=== PATIENT | male | born 1930 | race Caucasian/White ===

== ENCOUNTER → 2016-04-07 | Outpatient (CLI) | payer OTHER ==
[~2016-04-07] MED LIST: ASPECUNK PO; ATROPINE PO; CHOL100010 PO; FINA5TAB PO; FLM4 PO; FRRS300 PO; MRPSRUNK PO; MULT-506 PO; OXYC-57 PO; potassium PO
[2016-04-07 12:19] LABS: BASO % 0.6 %; BASO ABS # 0.03 K/uL (0-0.2); COMPLETE YES; EOS % 6.2 %; HEMATOCRIT 41.6 % (42-52); IG% 0.4 %; LYMPH % 36.4 %; LYMPH ABS # 1.95 K/uL (1.2-3.4); MEAN CELL VOLUME 103.2 fL (80-100); MEAN CORPUSCULAR HEMOGLOBIN 34.5 pg (25-34); MEAN CORPUSCULAR HGB CONC 33.4 g/dl (32-36); MEAN PLATELET VOLUME 10.4 fL (7.4-10.4); MONO % 10.6 %; NEUT % 45.8 %; PLATELET COUNT 237 K/uL (130-400); RED BLOOD COUNT 4.03 M/uL (4.7-6.1); WHITE BLOOD COUNT 5.36 K/uL (4.8-10.8)
== END | disposition home or self-care (01) ==
LOC: C.LABPVFM 08:07
PROVIDERS: ATTEND Family Medicine
DX: D53.9 Nutritional anemia, unspecified (principal); E53.8 Deficiency of other specified B group vitamins; E55.9 Vitamin D deficiency, unspecified

== ENCOUNTER 2018-08-28 12:38 | Inpatient (IN) ==
--- OUTSIDE RECORDS SUMMARY | 2018-08-28 12:41 | External Medical Summary | Continuity of Care Document ---
:1930 Author Name Pop Jacobson, Provider Address Unavailable Unavailable , Care Team Providers Name Role Phone Morteza Jacobson, Marce Unavailable [email or web address] MORTEZA Jacobson, MARCE Unavailable Unavailable Unavailable Unavailable Unavailable Assessments Assessed Problems:Vitamin B12 deficiency Problems Ileostomy present (V44.2) (Z93.2) Low back pain (724.2) (M54.5) Contusion of thigh, right (924.00) (S70.11XA) Contusion of groin, right (922.2) (S30.1XXA) Pubic ramus fracture (808.2) (S32.599A) Benign prostatic hyperplasia with elevat ed prostate specific antigen (PSA) (600.00) (N40.0) Hyperlipidemia (272.4) (E78.5) Ulcerative pancolitis (556.6) (K51.00) Hypertension (401.9) (I10) Elevated serum creatinine (790.99) (R79.89) Abnormal immunological finding in serum (790.99) (R76.9) Need for pneumococcal vaccination (V03.82) (Z23) Actinic keratosis (702.0) (L57.0) Vitamin B12 deficiency (266.2) (E53.8) Elevated prostate specific antigen (PSA) (790.93) (R97.20) Vitamin D deficiency (268.9) (E55.9) Macrocytic anemia (281.9) (D53.9) Enlarged prostate with lower urinary tract symptoms (LUTS) ( 600.01) (N40.1) History of basal cell carcinoma (V10.83) (Z85.828) Status: Resolved Hyponatremia (276.1) (E87.1) Allergies and Adverse Reactions Morphine Derivatives (Allergy) Reaction: Nausea Medications Tamsulosin HCl - 0.4 MG Oral Capsule; TAKE 1 CAPSULE Daily Quantity: 30 Refills: 0 Finasteride 5 MG Oral Tablet; TAKE 1 TABLET DAILY. Start: 04-Apr-2012 Quantity: 90 Refills: 1 Cyanocobalamin 1000 MCG/ML Injection Yana ution; INJECT 1 ML INTRAMUSCULARLY ONCE A MONTH Kavon Pro Start: 27-Aug-2018 Quantity: 0 Status: Admin Reques champ Refills: 0 Diphenatol 2.5-0.025 MG TABS; TAKE 1 TABLET 3 times daily Start: 04-Apr-2012 Refills: 0 Multi-Vitamin TABS Refills: 0 Potassium 99 MG Oral Tablet Refills: 0 Vitamin D3 2000 UNIT Oral Capsule; Take one capsule da jenn. Kavon Pro Start: 02-Oct-2014 Quantity: 30 Refills: 3 Procedures History of Total Proctocolectomy With Continent Ileostomy Status: Completed History of Total Knee Arthroplasty Statu s: Completed Immunizations DT On: 05-Dec-1997 Influenza On: 30-Dec-2009 Influenza On: 03-Jan-2013 9:18 Lot #: [id number], [employer] Fluzone High-Dose Intramuscular Suspension On: 02-Jan-2014 9 :44 Lot #: [id number], [employer] Prevnar 13 Intramuscular Suspension On: 02-Oct-2014 9:57 Lot #: [id number], [employer] Fluzone High-Dose Intramuscular Suspension On: 01-Jan-2015 9 :25 Lot #: [id number], [employer] Tdap (Boostrix) On: 04-Jun-2015 9:23 Lot #: [id number], GLAXO RUBI CASTANEDA Fluzone High-Dose Intramuscular Suspension On: 17-Dec-2015 8 :56 Lot #: [id number], [employer] Pneumococcal polysaccharide vaccine, 23 valent On: 30-Oct-19 17 13:17 Lot #: [id number], [employer] Fluzone High-Dose Intramuscular Suspension On: 17-Dec-2016 1 1:48 Lot #: [id number], [employer] Fluzone High-Dose Intramuscular Suspension On: 04-Jan-2018 1 0:21 Lot #: [id number], [employer] Family History Unknown Family Member Family history of Hypertension (V17.49) Status: Active Comments: Family History Sister Family history of diabetes mellitus (V18.0) (Z83.3) Status: Active Family history of hypercholesterolemia (V18.19) (Z83.42) Sta tus: Active Brother Family history of diabetes mellitus (V18.0) (Z83.3) Status: Active Family history of hypercholesterolemia (V18.19) (Z83.42) Sta tus: Active Social History - Smoking Status Never smoker Interventions Medications/Immunizations AdministeredCyanocobalamin 1000 MCG/ML Injection Solution Plan of Treatment Planned Medications Cyanocobalamin 1000 MCG/ML Ordered: 02-Aug-2018 Request Injection Solution Comments: To be Done : Recurring Schedule: 09/02/2018, 10/02/2018 ... Cyanocobalamin 1000 MCG/ML Ordered: 02-Sep-2018 Request Injection Solution Planned Observations Planned Goals not documented Results No Known Results Results not documented Encounters Appointment; [facility] Nurse 05-Jul-2018 8:30 Encounter Diagnosis: Problem not documented Appointment; [facility] Nurse 31-May-2018 8:30 Encounter Diagnosis: Problem not documented Appointment; [facility] Nurse 05-May-2018 8:30 Encounter Diagnosis: Problem not documented Appointment; [facility] Nurse 06-Apr-2018 8:30 Encounter Diagnosis: Problem not documented Appointment; Marce Pro M.D. 03-Mar-2018 11:30 Encounter Diagnosis: Problem not documented Appointment; [facility] Nurse 01-Mar-2018 8:30 Encounter Diagnosis: Problem not documented Appointment; [facility] Nurse 02-Feb-2018 8:30 Encounter Diagnosis: Problem not documented Appointment; [facility] Nurse 04-Jan-2018 9:15 Encounter Diagnosis: Problem not documented Appointment; [facility] Nurse 02-Dec-2017 8:30 Encounter Diagnosis: Problem not documented Appointment; [facility] Nurse 02-Nov-2017 8:30 Encounter Diagnosis: Problem not documented Appointment; [facility] Nurse 05-Oct-2017 8:30 Encounter Diagnosis: Problem not documented Appointment; [facility] Nurse 31-Aug-2017 8:30 Encounter Diagnosis: Problem not documented Appointment; [facility] Nurse 04-Aug-2017 8:30 Encounter Diagnosis: Problem not documented Appointment; [facility] Nurse 06-Jul-2017 8:30 Encounter Diagnosis: Problem not documented Appointment; [facility] Nurse 08-Jun-2017 9:15 Encounter Diagnosis: Problem not documented Appointment; [facility] Nurse 11-May-2017 8:30 Encounter Diagnosis: Problem not documented Appointment; Marce Pro M.D. 27-Apr-2017 9:00 Encounter Diagnosis: Problem not documented Appointment; [facility] Nurse 13-Apr-2017 8:30 Encounter Diagnosis: Problem not documented Appointment; [facility] Nurse 09-Mar-2017 8:30 Encounter Diagnosis: Problem not documented Appointment; [facility] Nurse 09-Feb-2017 8:30 Encounter Diagnosis: Problem not documented Appointment; [facility] Nurse 12-Jan-2017 9:00 Encounter Diagnosis: Problem not documented Appointment; [facility] Nurse 17-Dec-2016 10:45 Encounter Diagnosis: Problem not documented Appointment; [facility] Nurse 08-Dec-2016 8:30 Encounter Diagnosis: Problem not documented Appointment; [facility] Nurse 12-Nov-2016 8:30 Encounter Diagnosis: Problem not documented Appointment; Marce Pro M.D. 29-Oct-2016 10:30 Encounter Diagnosis: Problem not documented Appointment; [facility] Nurse 06-Oct-2016 8:30 Encounter Diagnosis: Problem not documented Appointment; [facility] Nurse 08-Sep-2016 8:30 Encounter Diagnosis: Problem not documented Appointment; [facility] Nurse 02-Aug-2018 8:30 Encounter Diagnosis: Problem not documented
[2018-08-28 13:22] LABS: Basophils # (auto) 0.01 K/uL (0-0.2); Basophils % (auto) 0.1 %; Eosinophils # (auto) 0.05 K/uL (0-0.5); Eosinophils % (auto) 0.7 %; Hematocrit (blood only) 39.4 % (42-52); Hemoglobin 13.4 g/dL (14.0-18.0); Immature Granulocytes # (auto) 0.01 K/uL (0.00-0.02); Immature Granulocytes % (auto) 0.1 %; Lymphocytes # (auto) 0.69 K/uL (1.2-3.4); Lymphocytes % (auto) 10.2 %; Mean Corpuscular Volume 100.8 fL (80-100); Mean Platelet Volume 9.4 fL (7.4-10.4); Monocytes # (auto) 0.52 K/uL (0.11-0.59); Monocytes % (auto) 7.7 %; Neutrophils # (auto) 5.48 K/uL (1.4-6.5); Neutrophils % (auto) 81.2 %; Platelet Count 216 K/uL (130-400); RDW Coefficient of Variation 12.9 % (11.5-14.5); RDW Standard Deviation 46.6 fL (36.4-46.3); Red Blood Count 3.91 M/uL (4.7-6.1); White Blood Count 6.76 K/uL (4.8-10.8)
[2018-08-28 13:30] LABS: Prothrombin Time 9.8 Seconds (9.0-12.0)
[2018-08-28 13:41] LABS: BUN Creatinine Ratio 31.1 (10-20); Calcium 9.2 mg/dl (8.5-10.1); Creatinine Clr Calc Pharmacy 28.8 ml/min; Est GFR (African American) 43.9; Est GFR (Non-African American) 37.9; Potassium 4.3 mmol/L (3.5-5.1)
--- NOTE | 2018-08-28 13:52 | XRay Report ---
XR chest 1V portable HISTORY: 88 years-old Male fall acute chest trauma status post fall COMPARISON: Chest radiograph 12/16/2009 TECHNIQUE: Portable AP view of the chest FINDINGS: Cardiomediastinal and hilar silhouettes are within normal limits. Calcification the thoracic aortic a rch. Lungs are hyperinflated with subsegmental bibasilar opacities suggestive of atelectasis/scarring . No pneumothorax, pleural effusion or overt pulmonary edema. The lungs are hyperinflated. Imaged and changes of the shoulders and spine. No acute displaced rib fracture identified. IMPRESSION: No acute process. The above report was generated using voice recognition software. It may contain grammatical, syntax o r spelling errors. Electronically signed by: Will Pagan M.D. 08/28/2018 1:51 PM
--- NOTE | 2018-08-28 14:05 | XRay Report ---
XR hip RT 2-3V w pelvis, XR femur RT 2V routine HISTORY: 88 years-old Male fall, pain, ?frx acute right hip and femur pain status post fall COMPARISON: Sacrum and coccyx radiographs 03/13/2018 TECHNIQUE: 3 views of the right hip and 2 views of the right femur FINDINGS: HIP: Chronic appearing healing fracture deformity of the right superior pubic ramus. 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 Degenerative changes of the SI joints, pubic symphy sis and lower lumbar spine. There is an acute slightly impacted fracture of the intertrochanteric rig ht femur. Additionally, there is a few degrees of apex superior lateral angulation. Moderate adjacent soft tissue swelling. Femoral head appears intact. No acute dislocation. Surgical clips project over the scrotum. Peripheral arterial calcifications noted. FEMUR: Acute intertrochanteric fracture of the right femur. Mid and distal femur appear intact. Right knee t otal joint arthroplasty without evidence of complication. No large joint effusion about the knee iden tified. Demineralized appearance of the bones. IMPRESSION: 1. Acute appearing mildly impacted and slightly angulated fracture of the intertrochanteric right fem ur. 2. Chronic-appearing fracture forming of the right superior pubic ramus. 3. Demineralized appearance of the bones. The above report was generated using voice recognition software. It may contain grammatical, syntax o r spelling errors. Electronically signed by: Will Pagan M.D. 08/28/2018 2:03 PM
[2018-08-28] MEDS ORDERED: ACETAMINOPHEN 1,000 MG/100 ML VIAL IV STA (14:16)
--- NOTE | 2018-08-28 15:38 | XRay Report ---
XR knee RT 3V HISTORY: 88 years-old Male fall acute right knee pain status post fall COMPARISON: Right hip and femur radiographs of same day TECHNIQUE: 3 views of the right knee FINDINGS: Demineralized appearance the bones. Right knee total joint arthroplasty and patella resurfacing is no champ without evidence of hardware fracture or loosening. No acute periprosthetic fracture identified. Mild soft tissue swelling about the knee with small joint effusion. Peripheral arterial calcification s are noted. IMPRESSION: 1. Mild soft tissue swelling and small joint effusion. 2. No acute fracture or dislocation. The above report was generated using voice recognition software. It may contain grammatical, syntax o r spelling errors. Electronically signed by: Will Pagan M.D. 08/28/2018 3:36 PM
--- NOTE | 2018-08-28 16:09 | History & Physical Report ---
Date of Service August 28, 2018 Assessment & Plan (1) Closed intertrochanteric fracture of right hip: - Acute mildly impacted and slightly angulated fracture of right intertrochanteric femur noted on XR following fall at home. - Hip protocol ordered. - Orthopedics consulted, recs pending. - Pain control with Tylenol and Oxycodone prn. - Holding DVT ppx for possible procedure on 08/29/18; NPO after midnight except meds. - Continue Vit D daily; Vit D level pending in the morning. He is able to easily walk up and down a flight of stairs, achieving 4 METS without any angina or dyspnea. He has no history at all of any cardiac disease. He is quite active. ECG without any evidence of acute ischemia. He is with mild acute kidney injury which will likely be resolved with IV fluids due to prerenal state. He is therefore at average risk to undergo this intermediate risk procedure and should proceed with surgery as planned. (2) Fall: - Likely mechanical fall -- no LOC, lightheadedness noted. - Will need PT/OT evaluation prior to discharge. (3) Acute renal failure: - Creatinine increased to 1.61 -- baseline creatinine was 0.96 per outpt labs in May 2018. - Likely pre-renal (BUN/Cr ratio of 31.1) in setting of dehydration. - Start NS at 100 cc/hr. - Monitor renal function daily. (4) Ulcerative colitis: - S/p total proctocolectomy with ileostomy in 2004; also had colectomy in 2002. - Follows with Dr. Lopez - has not had any further complications. - Monitor ileostomy output - holding scheduled softeners/laxatives as pt has chronic liquid output. -Continue Lomotil as needed for diarrhea (5) BPH (benign prostatic hyperplasia): - Continue home Flomax and Finasteride. -Place [place] catheter if cannot void while lying flat this evening-discussed with nursing (6) Fracture of superior pubic ramus: - Chronic, noted on femur XR. (7) Anemia: - Macrocytic anemia noted on lab work. - Receives monthly B12 injections; also on ferrous sulfate daily at home. - Will order B12 and Folate levels in the morning. (8) DVT prophylaxis: - SCDs; hold pharmacologic ppx for procedure. Dispo: Med/surg for orthopedics consult, repair of intertrochanteric fracture. History of Present Illness Chief Complaint: Fall Primary Care Provider: Paula Pro MD Mr. Gibson is an 88 year old male with past medical history of BPH, HLD, Venous insufficiency, Ulcerative colitis s/p total proctocolectomy with ileostomy who presented to the ER with right hip pain following a fall at home. Pt. states he was standing on a stool to reach the [employer] box outside. He was stepping down from step stool and fell to the ground after hitting the first step. He landed on his right side -- right elbow, hip and knee had direct contact with the ground. He denies LOC during fall, dizziness or vision changes prior to fall. Complains of pain with movement in right hip but denies pain at rest. Received Tylenol IV in the ER with improvement in pain. Denies chest pain, SOB, headache, LE edema, N/V, dysuria or retention. Has good output from ileostomy -- takes Lomotil three times daily at home to prevent liquid output. Femur XR in the ER showed acute impacted and slightly angulated fracture of the intertrochanteric right femur. Lab work showed an GEE -- likely pre-renal related to dehydration. BP was borderline low -- will require IV fluid hydration. He will be admitted to med/surg for treatment of a right intertrochanteric femur fracture. Allergies Allergy/AdvReac Type Severity Reaction Status Date / Time No Known Allergies Allergy Unknown Verified 01/15/05 21:07 morphine AdvReac Unknown GI Verified 08/28/18 13:05 INTOLERANCE TO MORPHINE Home Medications Home Medications Medication Instructions Recorded Confirmed Type cholecalciferol (vitamin D3) 2,000 unit PO QDL 08/28/18 08/28/18 History [Vitamin D3] cyanocobalamin (vitamin B-12) 0 mcg IM MONTHLY 08/28/18 08/28/18 History diphenoxylate-atropine 1 tab PO TID 08/28/18 08/28/18 History ferrous sulfate 325 mg PO QAM 08/28/18 08/28/18 History finasteride 5 mg PO HS 08/28/18 08/28/18 History multivitamin 1 tab PO QDL 08/28/18 08/28/18 History naproxen sodium [Aleve] 220 mg PO Q12H PRN 08/28/18 08/28/18 History potassium 99 mg PO BID 08/28/18 08/28/18 History tamsulosin 0.4 mg PO HS 08/28/18 08/28/18 History Past Med/Surg History Medical History Colostomy present (Chronic) Colitis (Chronic) BPH (benign prostatic hyperplasia) Degenerative disk disease HLD (hyperlipidemia) Surgical History History of partial surgical removal of colon History of bilateral knee replacement Family History Other Family history non-contributory Social History Preferred Language: Ivorian Communication Ability: Effective Physician Extender Required: No Beliefs That Will Affect Care: None marital status: Current Living Situation: Spouse current occupational status: retired Other Information That Helps Us Care for You: No Feels Safe at Home: Yes Safety Concerns: Feels Safe At This Time Smoking Status: Never smoker Do You Dip or Chew Tobacco: No Second Hand Exposure: No Tobacco Cessation Education Requested by Patient: No Hx Alcohol Use: Yes (Socially) Hx Substance Use: No Review of Systems Review of Systems: All systems reviewed & are unremarkable except as noted in HPI & below Constitutional: no fever, no chills, no fatigue, no weakness and no anorexia Ear, Nose, Mouth, Throat: no nasal congestion, no nasal discharge and no sore throat Respiratory: no cough, no dyspnea, no dyspnea on exertion and no wheezing Cardiovascular: no chest pain, no palpitations, no lightheadedness, no syncope and no edema Gastrointestinal: no abdominal pain, no nausea, no vomiting and no constipation Genitourinary: no dysuria, no difficulty urinating and no hematuria Musculoskeletal: + joint pain; no back pain Integumentary: no non-healing lesions Neurologic: no dizziness Allergy / Immunological: no rash Physical Exam Physical Exam: General: Resting comfortably in no apparent distress HEENT: NC/AT; PERRLA with EOMI; [place] conjunctiva, MMM. No erythema of posterior pharynx Neck: Supple and nontender Cardiac: RRR w/o murmurs, gallops or rubs Lungs: CTA bilaterally; No rhonchi, wheezing, or rales Abdomen: Bowel normoactive X 4; Nontender to palpation Rectal: Deferred : Deferred Back: NO spinous tenderness Extremities: Warm. No edema present. No tenderness to palpation noted over r ight femur. Neuro: No focal weakness Skin: No rash Results & Data Vital Signs (Past 12 Hours) Vital Signs Temp Pulse Pulse Resp BP BP Pulse Ox 08/28/18 15:02 50 L 20 124/62 08/28/18 14:14 58 L 20 101/57 L 98 08/28/18 12:50 36.6 C 68 20 117/76 99 Laboratory Results 08/28/18 08/28/18 08/28/18 Range/Units 13:08 13:08 13:08 WBC (4.8-10.8) K/uL RBC (4.7-6.1) M/uL Hgb (14.0-18.0) g/dL Hct (42-52) % MCV (80-100) fL MCH (25-34) pg MCHC (32-36) g/dL RDW Std Deviation (36.4-46.3) fL RDW Coeff of Toan (11.5-14.5) % Plt Count (130-400) K/uL MPV (7.4-10.4) fL Immature Gran % (Auto) % Neut % (Auto) % Lymph % (Auto) % [place] % (Auto) % Eos % (Auto) % Baso % (Auto) % Immature Gran # (Auto) (0.00-0.02) K/uL Neut # (Auto) (1.4-6.5) K/uL Lymph # (Auto) (1.2-3.4) K/uL [place] # (Auto) (0.11-0.59) K/uL Eos # (Auto) (0-0.5) K/uL Baso # (Auto) (0-0.2) K/uL PT 9.8 (9.0-12.0) Seconds INR 1.0 (0.9-1.1) Sodium 135 L (136-145) mmol/L Potassium 4.3 (3.5-5.1) mmol/L Chloride 103 (98-107) mmol/L Carbon Dioxide 24 (21-32) mmol/L Anion Gap 8.0 (3-11) BUN 50 H (7-18) mg/dl Creatinine 1.61 H (0.6-1.4) mg/dl Est Cr Clr Drug Dosing 28.8 ml/min Est GFR ( Amer) 43.9 Est GFR (Non-Af Amer) 37.9 BUN/Creatinine Ratio 31.1 H (10-20) Glucose 120 H (70-99) mg/dl Calcium 9.2 (8.5-10.1) mg/dl Blood Type A Positive Antibody Screen NEGATIVE 08/28/18 Range/Units 13:08 WBC 6.76 (4.8-10.8) K/uL RBC 3.91 L (4.7-6.1) M/uL Hgb 13.4 L (14.0-18.0) g/dL Hct 39.4 L (42-52) % MCV 100.8 H (80-100) fL MCH 34.3 H (25-34) pg MCHC 34.0 (32-36) g/dL RDW Std Deviation 46.6 H (36.4-46.3) fL RDW Coeff of Toan 12.9 (11.5-14.5) % Plt Count 216 (130-400) K/uL MPV 9.4 (7.4-10.4) fL Immature Gran % (Auto) 0.1 % Neut % (Auto) 81.2 % Lymph % (Auto) 10.2 % [place] % (Auto) 7.7 % Eos % (Auto) 0.7 % Baso % (Auto) 0.1 % Immature Gran # (Auto) 0.01 (0.00-0.02) K/uL Neut # (Auto) 5.48 (1.4-6.5) K/uL Lymph # (Auto) 0.69 L (1.2-3.4) K/uL [place] # (Auto) 0.52 (0.11-0.59) K/uL Eos # (Auto) 0.05 (0-0.5) K/uL Baso # (Auto) 0.01 (0-0.2) K/uL PT (9.0-12.0) Seconds INR (0.9-1.1) Sodium (136-145) mmol/L Potassium (3.5-5.1) mmol/L Chloride (98-107) mmol/L Carbon Dioxide (21-32) mmol/L Anion Gap (3-11) BUN (7-18) mg/dl Creatinine (0.6-1.4) mg/dl Est Cr Clr Drug Dosing ml/min Est GFR ( Amer) Est GFR (Non-Af Amer) BUN/Creatinine Ratio (10-20) Glucose (70-99) mg/dl Calcium (8.5-10.1) mg/dl Blood Type Antibody Screen ECG Additional Comments: ECG with normal sinus rhythm with PACs and PVCs, no acute i schemia Code Status & VTE Plan Code Status DNR/DNI VTE Prophylaxis Plan VTE Prophylaxis will be ordered: No Reason for no VTE drug order: Treatment not indicated Supervising Physician Co-Signing Physician Notes PA Supervision Note: I personally saw and examined the patient. I verified all philip points and agree with DONNA Shelton with the following exceptions and/or additions: Patient presents with mechanical fall onto the right side resulting in right sided hip fracture, also with right knee effusion in the setting of total knee arthroplasty. Denies chest pain with climbing a flight of stairs. No previous cardiac history or NH. He reports he is thirsty and has not drank anything for the last 6 to 7 hours since arrival in the ER. History reviewed ROS as above Vitals reviewed Gen: AAOx3, NAD HEENT: Anicteric sclerae, EOMI CV: RRR no mgr nl S1S2, no carotid bruits Pulm: CTAB no wcr Abd: +BS soft NT ND no masses or hernias Ext: No edema, 2+ DP pulses bilaterally, right leg with no tenderness to palpation over right lateral hip, not much pain with right lower extremity logroll Skin: No rashes, warm/dry 88-year-old male with history of UC status post total colectomy, BPH, macrocytic anemia, here with mechanical fall resulting in right hip fracture and right knee contusion with effusion. -Awaiting orthopedic consultation-most likely for surgical repair tomorrow -Agree with surgical perioperative risk as noted above -Pain control with IV acetaminophen while n.p.o., he is declining anything stronger at this time -For GEE, check renal function in the morning and hydrate with IV fluids
[2018-08-28] MEDS ORDERED: ONDANSETRON INJ 2 MG/ML 2 ML VIAL IV PRN (16:56)
[2018-08-28] MEDS ORDERED: DIPHENOXYLATE/ATROPINE 2.5/0.025MG TAB PO PRN (16:56)
[2018-08-28] MEDS ORDERED: ACETAMINOPHEN 325 MG TAB PO PRN (16:56)
[2018-08-28] MEDS ORDERED: MAGNESIUM HYDROXIDE SUSP 30 ML UDC PO PRN (16:56)
[2018-08-28] MEDS ORDERED: BISACODYL 10 MG SUPP PR PRN (16:56)
[2018-08-28] MEDS: SODIUM CHLORIDE 0.9% 1000ML 1,000 ML IV SCH (17:59)
--- NOTE | 2018-08-28 19:28 | Emergency Department Note ---
Entered by Yudith Stuart acting as a scribe for Lalo Chi M.D. History of Present Illness General Chief complaint: Fall Stated complaint: fall/ R hip pain Source: patient History of Present Illness Onset (ago): hour(s) 1 Location: head Pain Consistency: + other (episode) Quality: + other (fall) Relieved By: + rest; not by medication (Tylenol) Exacerbated By: + movement Associated symptoms: + denies other symptoms (head trauma, headache, or any other pain on his right side, numbness or tingling) and + other (inability to bear weight on right leg) The patient is a 88 year old male that is presenting to the Emergency Room with complaints of an episode of a fall that occurred 1 hour ago. The patient reports that he was on a stool and fell when he was turning around to step down. He states that he fell on his right side and notes that he is currently experiencing pain in his right hip. He notes that it does not hurt when he lies still but states that he is unable to bear weight on the leg. He denies any head trauma, headache, or any other pain on his right side. He denies any numbness or tingling. He notes that he took two Tylenol for the pain. He states that he has a history of colitis and had a ileostomy bag placed in 2002. He notes that he had 6 feet of his small intestine removed at a later date. He denies taking any blood thinners or aspirin. He denies any history of past hip surgeries. The patient reports that he had his right knee replaced in 2008 and his left knee replaced in 2009. He notes that he has had his tetanus booster within the past 10 years. Home Medications Home Medications Medication Instructions Recorded Confirmed Type cholecalciferol (vitamin D3) 2,000 unit PO QDL 08/28/18 08/28/18 History [Vitamin D3] cyanocobalamin (vitamin B-12) 0 mcg IM MONTHLY 08/28/18 08/28/18 History diphenoxylate-atropine 1 tab PO TID 08/28/18 08/28/18 History ferrous sulfate 325 mg PO QAM 08/28/18 08/28/18 History finasteride 5 mg PO HS 08/28/18 08/28/18 History multivitamin 1 tab PO QDL 08/28/18 08/28/18 History naproxen sodium [Aleve] 220 mg PO Q12H PRN 08/28/18 08/28/18 History potassium 99 mg PO BID 08/28/18 08/28/18 History tamsulosin 0.4 mg PO HS 08/28/18 08/28/18 History Allergies Allergy/AdvReac Type Severity Reaction Status Date / Time No Known Allergies Allergy Unknown Verified 01/15/05 21:07 morphine AdvReac Unknown GI Verified 08/28/18 13:05 INTOLERANCE TO MORPHINE Past Med/Surg History Medical History Colostomy present (Chronic) Colitis (Chronic) BPH (benign prostatic hyperplasia) Degenerative disk disease HLD (hyperlipidemia) Surgical History History of partial surgical removal of colon History of bilateral knee replacement Family History Other Family history non-contributory Social History Preferred Language: [place] Islander Communication Ability: Effective Pairer Inspector Required: No Beliefs That Will Affect Care: None marital status: Current Living Situation: Spouse current occupational status: retired Other Information That Helps Us Care for You: No Feels Safe at Home: Yes Safety Concerns: Feels Safe At This Time Smoking Status: Never smoker Do You Dip or Chew Tobacco: No Second Hand Exposure: No Tobacco Cessation Education Requested by Patient: No Hx Alcohol Use: Yes (Socially) Hx Substance Use: No Review of Systems See HPI for pertinent positives & negatives. and A total of 10 systems reviewed and were otherwise negative Physical Exam Vital Signs Vital Signs - 24 hr 08/28/18 12:50 08/28/18 14:14 08/28/18 15:02 Temperature 36.6 C Temperature Source Oral Sepsis Recent Fever Within 48 Hours No Sepsis New/Unexplained Change in Mental Status No Sepsis Action Taken by Nursing No Action Required Pulse Rate 68 Pulse Rate [Right Finger] 58 L 50 L Respiratory Rate 20 20 20 Blood Pressure 117/76 Blood Pressure [Left Arm] 101/57 L 124/62 Blood Pressure Mean 89 Blood Pressure Mean [Left Arm] 71 82 Pulse Oximetry 99 98 Oxygen Delivery Method Room Air Room Air GENERAL: Awake, alert, well-appearing, in no distress HENT: Normocephalic, atraumatic. Oropharynx unremarkable. EYES: Normal conjunctiva. Sclera non-icteric. NECK: Supple. No nuchal rigidity. RESPIRATORY: Clear to auscultation. No wheezes. Normal respiratory effort. CARDIAC: Normal rate. Normal rhythm. Extremities warm and well perfused. GI: Soft, non-distended. No tenderness to palpation. No rebound or guarding. Right sided ileostomy bag present. RECTAL: Deferred. MUSCULOSKELETAL: Chest examination reveals no tenderness. Tenderness and deformity of right hip. LOWER EXTREMITIES: Calves are equal size bilaterally and non-tender. No edema. 2+ DP pulse right lower extremity. NVI right lower extremity. NEURO: Normal sensorium. No sensory or motor deficits noted. No facial droop. SKIN: Warm and dry. No rash or jaundice noted. 3 cm right elbow skin tear. 1 cm right lateral knee skin tear. Course 1243:The patient was evaluated in room C02B. A complete history and physical examination was performed. 1410: I updated the patient on his current lab and imaging results. 1417: I discussed the patient's care with Dr. Cavazos, [facility], who will evaluate the patient further. 1437: I discussed the patient's case with RAE Deluca, who will evaluate the patient for further management and care with Dr. Calderon as the attending physician. 1440: Upon reevaluation, the patient is resting comfortably. I discussed laboratory and radiographic results with the patient. He verbalized agreement of the treatment plan. The patient will be evaluated for further management and care. Consultations Consultation #1: I discussed the patient's care with Dr. Cavazos, [facility], who will evaluate the patient further. Time: 14:17 Consultation #2: I discussed the patient's case with RAE Deluca, who will evaluate the patient for further management and care with Dr. Calderon as the attending physician. Time: 14:37 Administered Medications Sodium Chloride (Nss 1000ml) 1,000 mls @ 100 mls/hr IV .Q10H JAMAR Stop: 09/27/18 16:55 Last Admin: 08/28/18 17:59 Dose: 100 mls/hr Documented by: [id number] Discontinued Medications Acetaminophen (Ofirmev) 1,000 mg in 100 mls @ 400 mls/hr IV NOW STA Stop: 08/28/18 14:30 Last Infusion: 08/28/18 14:40 Dose: 0 mls/hr Documented by: [id number] Admin: 08/28/18 14:20 Dose: 400 mls/hr Documented by: [id number] Medical Decision Making Differential Diagnosis Differential diagnosis: Etiologies such as fracture, dislocation, neurovascular compromise, compartment syndrome, soft tissue injury, as well as others were entertained. Medical Records Attestation: I reviewed the patient's medical records. Home Medications Current Medication List: was personally reviewed by me Laboratory Data Attestation: I reviewed the patient's lab results. Result diagrams: 08/28/18 13:08 08/28/18 13:08 Lab Results 08/28/18 08/28/18 08/28/18 Range/Units 13:08 13:08 13:08 WBC 6.76 (4.8-10.8) K/uL RBC 3.91 L (4.7-6.1) M/uL Hgb 13.4 L (14.0-18.0) g/dL Hct 39.4 L (42-52) % MCV 100.8 H (80-100) fL MCH 34.3 H (25-34) pg MCHC 34.0 (32-36) g/dL RDW Std Deviation 46.6 H (36.4-46.3) fL RDW Coeff of Toan 12.9 (11.5-14.5) % Plt Count 216 (130-400) K/uL MPV 9.4 (7.4-10.4) fL Immature Gran % (Auto) 0.1 % Neut % (Auto) 81.2 % Lymph % (Auto) 10.2 % Gem % (Auto) 7.7 % Eos % (Auto) 0.7 % Baso % (Auto) 0.1 % Immature Gran # (Auto) 0.01 (0.00-0.02) K/uL Neut # (Auto) 5.48 (1.4-6.5) K/uL Lymph # (Auto) 0.69 L (1.2-3.4) K/uL Gem # (Auto) 0.52 (0.11-0.59) K/uL Eos # (Auto) 0.05 (0-0.5) K/uL Baso # (Auto) 0.01 (0-0.2) K/uL PT 9.8 (9.0-12.0) Seconds INR 1.0 (0.9-1.1) Sodium 135 L (136-145) mmol/L Potassium 4.3 (3.5-5.1) mmol/L Chloride 103 (98-107) mmol/L Carbon Dioxide 24 (21-32) mmol/L Anion Gap 8.0 (3-11) BUN 50 H (7-18) mg/dl Creatinine 1.61 H (0.6-1.4) mg/dl Est Cr Clr Drug Dosing 28.8 ml/min Est GFR ( Amer) 43.9 Est GFR (Non-Af Amer) 37.9 BUN/Creatinine Ratio 31.1 H (10-20) Glucose 120 H (70-99) mg/dl Calcium 9.2 (8.5-10.1) mg/dl Blood Type Antibody Screen 08/28/18 Range/Units 13:08 WBC (4.8-10.8) K/uL RBC (4.7-6.1) M/uL Hgb (14.0-18.0) g/dL Hct (42-52) % MCV (80-100) fL MCH (25-34) pg MCHC (32-36) g/dL RDW Std Deviation (36.4-46.3) fL RDW Coeff of Toan (11.5-14.5) % Plt Count (130-400) K/uL MPV (7.4-10.4) fL Immature Gran % (Auto) % Neut % (Auto) % Lymph % (Auto) % Gem % (Auto) % Eos % (Auto) % Baso % (Auto) % Immature Gran # (Auto) (0.00-0.02) K/uL Neut # (Auto) (1.4-6.5) K/uL Lymph # (Auto) (1.2-3.4) K/uL Gem # (Auto) (0.11-0.59) K/uL Eos # (Auto) (0-0.5) K/uL Baso # (Auto) (0-0.2) K/uL PT (9.0-12.0) Seconds INR (0.9-1.1) Sodium (136-145) mmol/L Potassium (3.5-5.1) mmol/L Chloride (98-107) mmol/L Carbon Dioxide (21-32) mmol/L Anion Gap (3-11) BUN (7-18) mg/dl Creatinine (0.6-1.4) mg/dl Est Cr Clr Drug Dosing ml/min Est GFR ( Amer) Est GFR (Non-Af Amer) BUN/Creatinine Ratio (10-20) Glucose (70-99) mg/dl Calcium (8.5-10.1) mg/dl Blood Type A Positive Antibody Screen NEGATIVE Imaging Data Radiologist's Impression: Radiology results as stated below per my review and the radiologist's interpretation: XR hip RT 2-3V w pelvis, XR femur RT 2V routine HISTORY: 88 years-old Male fall, pain, ?frx acute right hip and femur pain status post fall COMPARISON: Sacrum and coccyx radiographs 03/13/2018 TECHNIQUE: 3 views of the right hip and 2 views of the right femur FINDINGS: HIP: Chronic appearing healing fracture deformity of the right superior pubic ramus. 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 Degenerative changes of the SI joints, pubic symphysis and lower lumbar spine. There is an acute slightly impacted fracture of the intertrochanteric right femur. Additionally, there is a few degrees of apex superior lateral angulation. Moderate adjacent soft tissue swelling. Femoral head appears intact. No acute dislocation. Surgical clips project over the scrotum. Peripheral arterial calcifications noted. FEMUR: Acute intertrochanteric fracture of the right femur. Mid and distal femur appear intact. Right knee total joint arthroplasty without evidence of complication. No large joint effusion about the knee identified. Demineralized appearance of the bones. IMPRESSION: 1. Acute appearing mildly impacted and slightly angulated fracture of the intertrochanteric right femur. 2. Chronic-appearing fracture forming of the right superior pubic ramus. 3. Demineralized appearance of the bones. The above report was generated using voice recognition software. It may contain grammatical, syntax or spelling errors. Electronically signed by: Will Pagan M.D. 08/28/2018 2:03 PM XR chest 1V portable HISTORY: 88 years-old Male fall acute chest trauma status post fall COMPARISON: Chest radiograph 12/16/2009 TECHNIQUE: Portable AP view of the chest FINDINGS: Cardiomediastinal and hilar silhouettes are within normal limits. Calcification the thoracic aortic arch. Lungs are hyperinflated with subsegmental bibasilar opacities suggestive of atelectasis/scarring. No pneumothorax, pleural effusion or overt pulmonary edema. The lungs are hyperinflated. Imaged and changes of the shoulders and spine. No acute displaced rib fracture identified. IMPRESSION: No acute process. The above report was generated using voice recognition software. It may contain grammatical, syntax or spelling errors. Electronically signed by: Will Pagan M.D. 08/28/2018 1:51 PM XR knee RT 3V HISTORY: 88 years-old Male fall acute right knee pain status post fall COMPARISON: Right hip and femur radiographs of same day TECHNIQUE: 3 views of the right knee FINDINGS: Demineralized appearance the bones. Right knee total joint arthroplasty and patella resurfacing is noted without evidence of hardware fracture or loosening. No acute periprosthetic fracture identified. Mild soft tissue swelling about the knee with small joint effusion. Peripheral arterial calcifications are noted. IMPRESSION: 1. Mild soft tissue swelling and small joint effusion. 2. No acute fracture or dislocation. The above report was generated using voice recognition software. It may contain grammatical, syntax or spelling errors. Electronically signed by: Will Pagan M.D. 08/28/2018 3:36 PM ECG Data Attestation: I personally reviewed and interpreted this ECG as follows: Indication: weakness Rate (beats per minute): 81 Rhythm: sinus rhythm Findings: + other (normal intervals) and + PVC; no ST depression, no ST elevation and no acute ischemic change Blood Pressure Blood Pressure Findings: Normal blood pressure MDM Narrative Patient is an 88-year-old gentleman with a past medical history including ulcerative colitis requiring ileostomy, and prior knee replacements by Dr. Hamm, and hyperlipidemia presented after fall complaining of right hip pain. Fortunately has a recent history of right superior and inferior pubic rami fractures in February. Patient states she was getting off a stool and turned and fell onto his right stripe. Denies striking his head. Complains of a small skin tear on his right elbow and right knee. Bandaged and clean. States his tetanus is up-to-date last 10 years. Like a severe right hip pain unable to walk. Denies any chest pain or difficulty breathing. Neurovascular intact in right lower extremity. Concern for possible hip fracture. X-ray imaging was obtained. Basic labs and EKG as well as chest x-ray obtained as well. Chest x- ray without acute pathology. He denies any acute head or neck issues and will deferring imaging here at this time. X-ray unfortunately does show evidence of mildly impacted and angulated right intertrochanteric fracture. Chronic pelvic issues are noted again. Patient later little bit knee pain and x-rays obtained here without acute fracture or dislocation noted. Discussed with orthopedics and will admit to the medicine service given his medical comorbidities. Patient was updated. Hospitalist contacted. Impression & Plan Hip fracture, right Discharge Plan Visit Data *Final* Discharge Date/Time: 08/28/18 16:31 Chief Complaint: Fall Stated Complaint: fall/ R hip pain ED Provider: Lalo Chi Discharge Problem: Hip fracture, right Patient Disposition: Admitted As Inpatient Discharge Instructions Interventions: ED Discharge Assessment Last Done: 08/28/18 16:31 Discharge Problem: Hip fracture, right Qualifiers: Encounter type: initial encounter Fracture type: closed Qualified Code(s): S72. 001A - Fracture of unspecified part of neck of right femur, initial encounter for closed fracture The jose's documentation has been prepared under my direction and personally reviewed by me in its entirety. I confirm that the note above accurately reflects all work, treatment, procedures, and medical decision making performed by me.
[2018-08-28] MEDS: TAMSULOSIN HCL 0.4 MG CAP PO SCH (20:19)
[2018-08-28] MEDS: FINASTERIDE 5 MG TAB PO SCH (20:19)
[2018-08-29] MEDS ORDERED: ACETAMINOPHEN 1000 MG/100 ML IV IV PRN (00:15)
[2018-08-29] MEDS: SODIUM CHLORIDE 0.9% 1000ML 1,000 ML IV SCH ×3 (04:22→16:53)
[2018-08-29 07:00] LABS: Hematocrit (blood only) 30.9 % (42-52); Hemoglobin 10.6 g/dL (14.0-18.0); Mean Corpuscular Hgb Conc 34.3 g/dL (32-36); Mean Corpuscular Volume 99.7 fL (80-100); Mean Platelet Volume 9.4 fL (7.4-10.4); Platelet Count 169 K/uL (130-400); RDW Standard Deviation 47.3 fL (36.4-46.3); White Blood Count 7.54 K/uL (4.8-10.8)
[2018-08-29 07:36] LABS: BUN Creatinine Ratio 28.4 (10-20); Calcium 8.5 mg/dl (8.5-10.1); Creatinine Clr Calc Pharmacy 29.7 ml/min; Est GFR (African American) 45.6; Est GFR (Non-African American) 39.4; Magnesium 1.9 mg/dl (1.8-2.4); Potassium 4.8 mmol/L (3.5-5.1)
[2018-08-29] MEDS: FERROUS SULFATE 325 MG TAB PO SCH (07:48)
--- NOTE | 2018-08-29 08:25 | Anesthesiology Consultation ---
Date of Service August 29, 2018 Assessment & Plan Chart Review Chart Review: Acceptable Risk for Surgery and Patient NOT seen in Pre Admission Testing Consults Requested none Pt is currently being managed by the hospitalist team and is deemed optimized to proceed with surgery today. ASA ASA3 Proposed Anesthesia Anesthesia Type: MAC Spinal Risk / Benefits Reviewed With: PT / POA / Parent / Guardian, Accepts Plan and Informed Consent Obtained Additional Comments: R/b of GA vs SAB discussed with patient and family members. All questions and concerns were answered. Also discussed with patient that DNR/DNI order will be suspended while intraop. Pt understood, accepting risks and willing to proceed. Consent was signed and witnessed. History Surgery Operation Date: 08/29/18 07:00 Proposed Procedures p Right Trochanteric Nail Sanjay - Brandon Hamm MD Height/Weight Height: 1.75 m Weight: 63 kg Allergies Allergy/AdvReac Type Severity Reaction Status Date / Time No Known Allergies Allergy Unknown Verified 01/15/05 21:07 morphine AdvReac Unknown GI Verified 08/28/18 13:05 INTOLERANCE TO MORPHINE Medications Home Medications Medication Instructions Recorded Confirmed Last Taken cholecalciferol (vitamin D3) 2,000 unit PO QDL 08/28/18 08/28/18 08/27/18 [Vitamin D3] cyanocobalamin (vitamin B-12) 0 mcg IM MONTHLY 08/28/18 08/28/18 07/28/18 diphenoxylate-atropine 1 tab PO TID 08/28/18 08/28/18 08/28/18 ferrous sulfate 325 mg PO QAM 08/28/18 08/28/18 08/28/18 finasteride 5 mg PO HS 08/28/18 08/28/18 08/27/18 multivitamin 1 tab PO QDL 08/28/18 08/28/18 08/27/18 naproxen sodium [Aleve] 220 mg PO Q12H PRN 08/28/18 08/28/18 08/28/18 11:00 440mg potassium 99 mg PO BID 08/28/18 08/28/18 08/28/18 tamsulosin 0.4 mg PO HS 08/28/18 08/28/18 08/27/18 Active Medications Generic Name Dose Route Start Last Admin Trade Name Freq PRN Reason Stop Dose Admin Acetaminophen 650 mg 08/28/18 16:56 08/29/18 05:48 Tylenol PO 09/27/18 16:55 650 mg Q6H PRN Administration MILD Pain (Scale 1,2,3) Ferrous Sulfate 325 mg 08/29/18 09:00 08/29/18 07:48 Feosol PO 09/28/18 08:59 325 mg QAM JAMAR Administration Finasteride 5 mg 08/28/18 21:00 08/28/18 20:19 Proscar PO 09/27/18 20:59 5 mg HS JAMAR Administration Sodium Chloride 1,000 mls @ 100 mls/hr 08/28/18 16:56 08/29/18 12:54 Nss 1000ml IV 09/27/18 16:55 Not Given .Q10H JAMAR Multivitamins 1 tab 08/29/18 11:30 08/29/18 11:55 Multivitamin Tab PO 09/28/18 11:29 Not Given QDL JAMAR Tamsulosin HCl 0.4 mg 08/28/18 21:00 08/28/18 20:19 Flomax PO 09/27/18 20:59 0.4 mg HS JAMAR Administration Vitamin D 2,000 units 08/29/18 11:30 08/29/18 11:55 Vitamin D3 PO 09/28/18 11:29 Not Given QDL JAMAR NPO Date Last Intake of Fluids: 08/28/18 Time Last Intake of Fluids: 23:59 Date Last Intake of Solids: 08/28/18 Time Last Intake of Solids: 18:30 Past Medical History Medical History Colostomy present (Chronic) Colitis (Chronic) BPH (benign prostatic hyperplasia) Degenerative disk disease HLD (hyperlipidemia) Exercise / Class Metabolic Activity II 4-5 Yardwork/Stairs/Walk up hill Past Family History Family History Other Family history non-contributory Past Surgical History Surgical History History of partial surgical removal of colon History of bilateral knee replacement Past Anesthesia History No Hx of Anesthesia Complications and No Family Hx of Anesthesia Complications History of PONV No Hx of PONV and No Hx of Motion Sickness Social History Smoking Status: Never smoker Do You Dip or Chew Tobacco: No Hx Alcohol Use: Yes (Socially) Hx Substance Use: No substance use type: does not use Physical Exam Vital Signs Last Vital Signs Temp 37 C 08/29/18 11:40 Pulse 79 08/29/18 11:40 Resp 18 08/29/18 11:40 BP 124/72 08/29/18 11:40 Pulse Ox 96 08/29/18 11:40 ENMT Mouth: no TMJ abnormality and no TMJ clicking Thyromental Distance: > or= 3.5 Finger Breadths Mallampati Class: II Neck normal visual inspection; neck extension not limited Respiratory Auscultation: lungs clear to auscultation bilaterally Cardiovascular Rate/Rhythm: regular rate and regular rhythm Psychiatric Orientation: alert and oriented x 3 Testing Laboratory Results Laboratory Tests 08/28/18 08/29/18 08/29/18 13:08 06:36 06:36 WBC 7.54 Hgb 10.6 L Hct 30.9 L Plt Count 169 PT 9.8 INR 1.0 Sodium 135 L Potassium 4.8 Chloride 106 Carbon Dioxide 22 BUN 44 H Creatinine 1.56 H Glucose 95 Electrocardiogram Date: 08/28/18 Findings: + NSR @ (85 bpm with ocasional PVCs and PACs) Otherwise normal ECG When compared with ECG of 12/16/2009 PVCs are now present PACs are now present Chest X-Ray Date: 08/28/18 Findings: + NAD
--- NOTE | 2018-08-29 08:34 | Consultation Report ---
DATE OF CONSULTATION: 08/29/2018 ORTHOPEDIC CONSULT CHIEF COMPLAINT: Right hip pain. HISTORY OF PRESENT ILLNESS: This 88-year-old gentleman well known to me from previous bilateral knee replacements done one 9 years ago and one 10 years ago and then a treatment of a stable pelvis fracture about 6 months ago. He was outside doing some work while he was up on a stool yesterday when he lost his balance and fell. He landed on his right side. Acute onset of pain. He was brought to the Emergency Room. X-ray displaced intertrochanteric hip fracture. He was admitted by the hospitalist service and we were consulted. Denies any other injuries. He has some scabs of his right elbow and the right knee. Previous independent ambulator. No preexisting hip pain. PAST MEDICAL HISTORY: Significant for: 1. Chronic renal disease. 2. Ulcerative colitis. 3. BPH. 4. Chronic anemia. Remainder of the past medical history is as per the admission H and P. PHYSICAL EXAMINATION: VITAL SIGNS: Temperature 37.0 this morning. Vital signs are stable. MUSCULOSKELETAL: General musculoskeletal exam reveals full and painless range of motion of the cervical, thoracic and lumbar spine. There is no pain in his upper extremities or his left lower extremity. He has got some abrasions over his right elbow in the lateral aspect of his right knee. Examination of the right hip and leg reveals the leg to be shortened and significantly externally rotated. There is no significant swelling. He does have this abrasion over the lateral side of his knee, but no knee effusion. He can dorsiflex and plantarflex his foot appropriately. He is neurologically intact. X-RAYS: X-rays of the right hip were reviewed. It shows a right displaced intertrochanteric hip fracture. He has got diffuse osteopenia. He has got healed right-sided pelvis fracture from 6 months ago. ASSESSMENT: An 88-year-old gentleman independent ambulator with a right displaced intertrochanteric hip fracture from a mechanical fall. Medically, he looks stable. PLAN: The patient has been admitted and medically optimized by the hospitalist service. We will plan on taking him to the operating room and do an IM nail later this afternoon. The risks and benefits of this procedure were explained to the patient including but not limited to DVT, PE, , infection, neurological injury, vascular injury, bleeding problem, pain, limited range of motion, stiffness, failure to relieve his symptoms, incomplete relief of symptoms, need for further surgery in the future, nonunion, malunion, etc. The patient understands and desires to proceed. Informed consent was obtained. We will continue DVT prophylaxis and TEDs and SCDs in the meantime. We will likely put him on aspirin postoperatively. He will likely need a rehab stay.
[2018-08-29 09:00] LABS: Folate (Folic Acid) 18.27 ng/ml (>5.38)
[2018-08-29] MEDS: MULTIVITAMIN TAB PO SCH (11:55)
[2018-08-29] MEDS: CHOLECALCIFEROL 1,000 UNITS TAB PO SCH (11:55)
[2018-08-29] MEDS ORDERED: fentaNYL citrate 100 MCG/2 ML VIAL ONE (12:14)
[2018-08-29] MEDS ORDERED: KETAMINE HCL INJ 50 MG/ML 10 ML VIAL ONE (12:16)
[2018-08-29] MEDS ORDERED: PROPOFOL IV EMULSION 10 MG/ML 20 ML VIAL IV ONE (12:17)
[2018-08-29] MEDS ORDERED: BUPIVACAINE 0.5 % 5 MG/1 ML PF 10ML VIAL ONE (12:19)
[2018-08-29] MEDS ORDERED: HYDROmorphone INJ 1 MG/ML SYRINGE IV PRN (12:34)
[2018-08-29] MEDS ORDERED: ePHEDrine sulfate 50 MG/ML AMP IV PRN (12:34)
[2018-08-29] MEDS ORDERED: fentaNYL citrate 100 MCG/2 ML VIAL IV PRN (12:34)
[2018-08-29] MEDS ORDERED: PHENYLEPHRINE 100MCG/ML 5ML SYR IV PRN (12:34)
[2018-08-29] MEDS ORDERED: ONDANSETRON INJ 2 MG/ML 2 ML VIAL IV PRN ×2 (12:34→16:28)
[2018-08-29] MEDS ORDERED: ATROPINE SULFATE 0.1 MG/ML 10ML SYR IV PRN (12:34)
[2018-08-29] MEDS ORDERED: BUPIVACAINE/EPINEPHRINE 0.5% MPF 1:200,000 30 ML VIAL ONE (13:20)
[2018-08-29] MEDS ORDERED: CEFAZOLIN 2000MG 2,000 MG/15 ML SYR IV ONE (13:43)
[2018-08-29] MEDS ORDERED: CEFAZOLIN 2,000 MG/15 ML IV PUSH IV ONE (13:44)
[2018-08-29] MEDS ORDERED: PHENYLEPHRINE HCL 10 MG/ML VIAL ONE (14:12)
--- NOTE | 2018-08-29 14:43 | Hospitalist Progress Note ---
Date of Service August 29, 2018 Assessment & Plan (1) Closed intertrochanteric fracture of right hip: - Acute mildly impacted and slightly angulated fracture of right intertrochanteric femur noted on XR following fall at home. - Hip protocol ordered. - Orthopedics consulted - to OR today - Pain control with Tylenol and Oxycodone prn. - held DVT ppx for procedure on 08/29/18 - start per ortho recommendation following surgery - Continue Vit D daily - level low at 23 (2) Fall: - Likely mechanical fall -- no LOC, lightheadedness noted. - Will need PT/OT evaluation prior to discharge. (3) Acute renal failure: - Creatinine 1.61 on admission -- baseline creatinine was 0.96 per outpt labs in May 2018, 1.56 today - Likely pre-renal (BUN/Cr ratio of 31.1) in setting of dehydration. - Continue NS at 100 cc/hr. - Monitor renal function daily. (4) Ulcerative colitis: - S/p total proctocolectomy with ileostomy in 2004; also had colectomy in 2002. - Follows with Dr. Lopez - has not had any further complications. - Monitor ileostomy output - holding scheduled softeners/laxatives as pt has chronic liquid output. -Continue Lomotil as needed for diarrhea (5) BPH (benign prostatic hyperplasia): - Continue home Flomax and Finasteride. (6) Fracture of superior pubic ramus: - Chronic, noted on femur XR. (7) Anemia: - Macrocytic anemia noted on lab work. - Receives monthly B12 injections; also on ferrous sulfate daily at home. - B12, folate levels wnl (8) DVT prophylaxis: - SCDs; hold pharmacologic ppx for procedure. Subjective Mr. Gibson appears comfortable. Reports pain is controlled. Awaiting OR this afternoon at the time of my evaluation Review of Systems Review of Systems: All systems reviewed & are unremarkable except as noted in HPI & below Physical Exam Physical Exam: General: no distress Eyes: normal inspection, PERLL Respiratory: chest non tender, clear to auscultation, normal breath sounds, no respiratory distress, no accessory muscle use Cardiac: regular rate and rhythm, no rub or gallop, no murmur, no edema, no jvd GI/: active bowel sounds, no abd pain or tenderness, soft, non distended Extremities: normal range of motion, normal strength, non tender Neuro/Psych: alert and oriented x 3, normal mood and affect Skin: normal color, dry Results & Data Vital Signs (Past 12 Hours) Vital Signs Temp Pulse Resp BP Pulse Ox 08/29/18 13:13 37.2 C 84 88 H 145/85 H 97 08/29/18 11:40 37 C 79 18 124/72 96 08/29/18 07:45 37 C 84 19 122/68 95
--- NOTE | 2018-08-29 15:04 | Post Operative Brief Note ---
Immediate Post Op Note v1 Date of Surgery August 29, 2018 Pre & Post Diagnosis Operation Date: 08/29/18 07:00 Pre-Op Diagnosis: Right Hip Fracture Post-Op Diagnosis: Right Hip Fracture Procedure Operation Date: 08/29/18 07:00 Actual Procedures p Right Long Trochanteric Intramedullary Nail(Right) - Brandon Hamm MD Surgeon Brandon Hamm MD Coal Crusher Operator None Estimated Blood Loss 100 Findings Consistent with Post-Op Diagnosis Fluids 800 cc Drains Latham Catheter Anesthesia Type Spinal MAC Complications none Disposition Accompanied Patient To Recovery: Yes Disposition: Recovery Room
--- NOTE | 2018-08-29 15:15 | Fluoroscopy Report ---
FL hip RT 2-3V CLINICAL HISTORY: 88 years-old Male presenting with RT TROCH NAIL. TECHNIQUE: 4 fluoroscopic image(s) recorded as part of an intraoperative procedure. COMPARISON: 08/28/2018. FINDINGS/IMPRESSION: There has been interval intramedullary nail fixation across the intertrochanteric right femur fractur e. No malalignment. Distal interlocking screw. Partially visualized right knee arthroplasty. Please see surgical report for further details. Fluoroscopy dosage (mGy): 5.92. Fluoroscopy time: 45 seconds. Number or time of high level fluoroscopy (HLF), digital spot, or digital subtraction images: 0. Electronically signed by: Otoniel Elizabeth M.D. 08/29/2018 3:14 PM
--- NOTE | 2018-08-29 16:09 | Anesthesiology Progress Note ---
Date of Service August 29, 2018 Anesthesia Post Procedure Vital Signs Vital Signs: Temp Pulse Pulse Pulse Resp BP BP 08/29/18 15:55 85 13 08/29/18 15:45 89 20 08/29/18 15:35 77 19 08/29/18 15:25 75 21 08/29/18 15:15 76 23 08/29/18 15:05 36.2 C L 79 14 08/29/18 13:13 37.2 C 84 88 H 08/29/18 11:40 37 C 79 18 08/29/18 07:45 37 C 84 19 08/28/18 22:55 37.0 C 73 20 08/28/18 16:50 36.9 C 97 H 18 149/72 H 08/28/18 16:31 77 20 154/70 H BP Pulse Ox 08/29/18 15:55 138/78 100 08/29/18 15:45 119/81 95 08/29/18 15:35 151/73 H 97 08/29/18 15:25 147/71 H 100 08/29/18 15:15 134/65 100 08/29/18 15:05 122/54 L 100 08/29/18 13:13 145/85 H 97 08/29/18 11:40 124/72 96 08/29/18 07:45 122/68 95 08/28/18 22:55 121/66 96 08/28/18 16:50 99 08/28/18 16:31 99 Pain Intensity Right Hip: Pain Intensity: 4 Transfer of Care Handoff Completed per policy Notes Mental Status: alert / awake / arousable Patient Amnestic to Procedure: Yes Nausea / Vomiting: adequately controlled Pain: adequately controlled Airway Patency, RR, SpO2: stable & adequate BP & HR: stable & adequate Hydration State: stable & adequate Anesthetic Complications: no major complications apparent
[2018-08-29] MEDS ORDERED: BISACODYL 10 MG SUPP PR PRN (16:28)
[2018-08-29] MEDS ORDERED: OXYCODONE HCL IR 5 MG TAB (IMMEDIATE RELEASE) PO PRN (16:28)
[2018-08-29] MEDS ORDERED: MAGNESIUM HYDROXIDE SUSP 30 ML UDC PO PRN (16:28)
[2018-08-29] MEDS ORDERED: NALOXONE HCL 0.4 MG/1 ML VIAL/CARP IV PRN (16:28)
[2018-08-29] MEDS: SENNA 8.6 MG TAB PO SCH (20:34)
[2018-08-29] MEDS: ACETAMINOPHEN 500 MG TAB PO SCH (20:35)
[2018-08-29] MEDS: FINASTERIDE 5 MG TAB PO SCH (20:35)
[2018-08-29] MEDS: TAMSULOSIN HCL 0.4 MG CAP PO SCH (20:35)
[2018-08-29] MEDS: ASPIRIN 81 MG ECTAB PO SCH (20:35)
[2018-08-29] MEDS: CEFAZOLIN 1000MG 1,000 MG/7.5 ML SYR IV SCH (21:32)
--- NOTE | 2018-08-29 21:34 | Operative Report ---
DATE OF OPERATION: 08/28/2018 SURGEON: Brandon Hamm MD CYBER SOFTWARE ENGINEER: None. PREOPERATIVE DIAGNOSIS: Right displaced intertrochanteric hip fracture. POSTOPERATIVE DIAGNOSIS: Right displaced intertrochanteric hip fracture. PROCEDURE PERFORMED: Right long cephalomedullary nailing of a right intertrochanteric hip fracture. COMPLICATIONS: None. ESTIMATED BLOOD LOSS: 100 mL FLUID REPLACEMENT: 800 mL crystalloid fluid replacement. ANESTHESIA: Spinal. DRAINS: None. SPECIMENS: None. OPERATIVE INDICATIONS: The patient is an 88-year-old white gentleman who is well known to me from previous bilateral knee replacements. He sustained injury to his right hip yesterday. He was apparently trying to do some work for his outside, standing on a stool, lost his balance and fell and injured his right hip. He had acute onset of pain. He was brought to the Emergency Room. X-rays showed displaced intertrochanteric hip fracture. The patient was admitted by the hospitalist service, medically optimized and indicated for surgical treatment. OPERATIVE IMPLANTS: Operative implants consisted of: 1. Synthes 360 mm x 11 mm right long trochanteric nail. 2. A 100 mm helical blade. 3. A 5 mm x 44 mm distal interlocking screw. OPERATIVE PROCEDURE: The patient was taken to the Operating Room, identified and placed on the operative table in supine position. All contact areas were appropriately padded. IV antibiotics were provided by anesthesia team. A spinal anesthetic had been implemented in the holding area. A Latham catheter was then placed in sterile fashion. The patient was then placed on the fracture table. The right leg was placed in boot traction, left leg was placed in a well leg morrow. I applied some longitudinal traction to the right leg and internally rotated the leg, so the kneecap pointed to the ceiling. X-ray was brought in to make sure we could get adequate x-rays and the fracture was adequately reduced. There was some distraction at the fracture site, but was aligned as best as possible. The right hip was then scrubbed with Hibiclens, prepped with ChloraPrep and then draped in usual sterile fashion. A curvilinear incision was made just proximal tip of the greater trochanter in line with the IM canal. Sharp dissection was carried down through subcutaneous tissue down to the gluteal fascia. The gluteal fascia was incised longitudinally in line with skin incision. I then placed a guidewire just lateral to the tip of the trochanter. It went right through the fracture site and we advanced this down the intramedullary canal. The position was verified fluoroscopically. I then reamed this with a 17 mm reamer. I took great care to make sure we reamed the bone and I also used the awl in order to make sure we removed some of his medial bone, so as not to separate the fracture site. I then removed the guidewire and exchanged it for a ball-tipped guidewire. I then measured the nail length and a 360 mm nail was selected. I then over-reamed this with a 12.5 mm reamer. I then placed a 11 mm x 360 mm right long trochanteric nail over the guidewire. The guidewire was removed. I tapped this into position. The lateral aiming arm was attached and advanced to the lateral aspect of the thigh. A stab incision was made and the aiming arm was advanced to the lateral aspect of the femur. The guidewire was placed in the central aspect of the femoral head and neck in both AP and lateral planes. The length was measured and a 100 mm helical blade was selected. The cortical step drill was used to breach the lateral cortex and a triple reamer was used and it measured at 100 mm. This was advanced over the guidewire. A 100 mm helical blade was then placed over the guidewire and tapped into position. I then tightened the set screw proximally. The fracture was slightly distracted so I did compress this and it compressed quite nicely. I did take a little traction off when I did this. The aiming arm was removed and some final x-rays were obtained. Attention was then drawn toward distal interlocking. Using the perfect [place] technique, a distal interlocking screw was placed in the dynamic hole. A stab incision was made. The drill was used and a 5 mm x 44 mm interlocking screw was placed. X-ray was brought in. All hardware was appropriately positioned. Attention was then drawn toward closing. All wounds were irrigated with copious amounts of normal saline. I did inject locally with 30 mL of 0.5% Marcaine with epinephrine. The gluteal fascia was then closed with #1 Vicryl suture in running fashion. The subcutaneous tissues of all wounds was then closed with 2-0 Dexon suture in a buried interrupted fashion. Skin was then closed with skin carrie. Leg was then cleaned, dried and a sterile dressing of Xeroform, 4 x 4's, ABD pad and tape was applied. The patient was then taken off the fracture table and transported to his bed. He was taken to the Recovery Room in stable condition. The patient tolerated the procedure well with no complications. All needle and sponge counts were correct at the end of the operation. I attest to the content of the Intraoperative Record and any orders documented therein. Any exceptions are noted below. CORBY
[2018-08-29] MEDS: OXYCODONE HCL IR 5 MG TAB (IMMEDIATE RELEASE) PO PRN (23:42)
[2018-08-30] MEDS: CEFAZOLIN 1000MG 1,000 MG/7.5 ML SYR IV SCH (05:38)
[2018-08-30] MEDS: OXYCODONE HCL IR 5 MG TAB (IMMEDIATE RELEASE) PO PRN (05:39)
[2018-08-30 06:47] LABS: Basophils # (auto) 0.01 K/uL (0-0.2); Basophils % (auto) 0.1 %; Eosinophils # (auto) 0.01 K/uL (0-0.5); Eosinophils % (auto) 0.1 %; Hematocrit (blood only) 26.4 % (42-52); Hemoglobin 9.1 g/dL (14.0-18.0); Immature Granulocytes # (auto) 0.05 K/uL (0.00-0.02); Immature Granulocytes % (auto) 0.4 %; Lymphocytes # (auto) 1.19 K/uL (1.2-3.4); Lymphocytes % (auto) 10.6 %; Mean Corpuscular Hgb Conc 34.5 g/dL (32-36); Mean Corpuscular Volume 100.4 fL (80-100); Mean Platelet Volume 9.3 fL (7.4-10.4); Monocytes # (auto) 1.57 K/uL (0.11-0.59); Neutrophils % (auto) 74.8 %; Platelet Count 143 K/uL (130-400); RDW Coefficient of Variation 13.3 % (11.5-14.5); RDW Standard Deviation 48.5 fL (36.4-46.3); Red Blood Count 2.63 M/uL (4.7-6.1); White Blood Count 11.23 K/uL (4.8-10.8)
[2018-08-30 07:23] LABS: BUN Creatinine Ratio 25.7 (10-20); Creatinine Clr Calc Pharmacy 32.7 ml/min; Est GFR (African American) 51.1; Est GFR (Non-African American) 44.1; Potassium 4.7 mmol/L (3.5-5.1)
[2018-08-30] MEDS: FERROUS SULFATE 325 MG TAB PO SCH (07:49)
[2018-08-30] MEDS: ASPIRIN 81 MG ECTAB PO SCH ×2 (07:49→20:48)
[2018-08-30] MEDS: ACETAMINOPHEN 500 MG TAB PO SCH ×3 (07:49→20:48)
--- NOTE | 2018-08-30 08:08 | Anesthesiology Progress Note ---
Date of Service August 30, 2018 Anesthesia Post Procedure Vital Signs Vital Signs: Temp Pulse Pulse Resp BP Pulse Ox 08/30/18 06:53 36.4 C L 84 20 136/66 97 08/30/18 03:43 36.5 C 94 H 16 116/69 98 08/29/18 23:06 37.0 C 92 H 16 128/69 97 08/29/18 19:35 37.1 C 92 H 17 151/81 H 99 08/29/18 18:29 37.1 C 98 H 17 124/73 99 08/29/18 17:33 37.6 C H 17 106/68 99 08/29/18 16:55 36.1 C L 18 139/83 99 08/29/18 16:25 36.5 C 93 H 18 149/82 H 100 08/29/18 16:15 36.5 C 90 17 140/80 100 08/29/18 16:05 88 15 144/84 H 98 08/29/18 15:55 85 13 138/78 100 08/29/18 15:45 89 20 119/81 95 08/29/18 15:35 77 19 151/73 H 97 08/29/18 15:25 75 21 147/71 H 100 08/29/18 15:15 76 23 134/65 100 08/29/18 15:05 36.2 C L 79 14 122/54 L 100 08/29/18 13:13 37.2 C 84 88 H 145/85 H 97 08/29/18 11:40 37 C 79 18 124/72 96 Notes Mental Status: alert / awake / arousable and participated in evaluation Nausea / Vomiting: adequately controlled Pain: adequately controlled Airway Patency, RR, SpO2: stable & adequate BP & HR: stable & adequate Hydration State: stable & adequate Neuraxial Anesthesia: sensory block resolved
[2018-08-30] MEDS ORDERED: SODIUM CHLORIDE 0.9% 1000ML 1,000 ML IV SCH ×2 (11:30)
[2018-08-30] MEDS: MULTIVITAMIN TAB PO SCH (11:34)
[2018-08-30] MEDS: CHOLECALCIFEROL 1,000 UNITS TAB PO SCH (11:34)
--- NOTE | 2018-08-30 17:55 | Hospitalist Progress Note ---
Date of Service August 30, 2018 Assessment & Plan (1) Closed intertrochanteric fracture of right hip: - Acute mildly impacted and slightly angulated fracture of right intertrochanteric femur noted on XR following fall at home. - Hip protocol ordered. - Orthopedics consulted - to OR 08/30 - Pain control with Tylenol and Oxycodone prn. - DVT ppx ASA BID per surgery - Continue Vit D daily - level low at 23 (2) Fall: - Likely mechanical fall -- no LOC, lightheadedness noted. - Will need PT/OT evaluation prior to discharge. (3) Acute renal failure: - Creatinine 1.61 on admission -- baseline creatinine was 0.96 per outpt labs in May 2018, 1.42 today - Likely pre-renal (BUN/Cr ratio of 31.1) in setting of dehydration. - Low UO - Give NSS @ 100 mls/hr x 1 liter - patient is eating and drinking well - Monitor renal function daily. (4) Ulcerative colitis: - S/p total proctocolectomy with ileostomy in 2004; also had colectomy in 2002. - Follows with Dr. Lopez - has not had any further complications. - Monitor ileostomy output - holding scheduled softeners/laxatives as pt has chronic liquid output. -Continue Lomotil as needed for diarrhea (5) BPH (benign prostatic hyperplasia): - Continue home Flomax and Finasteride. (6) Fracture of superior pubic ramus: - Chronic, noted on femur XR. (7) Anemia: - Macrocytic anemia noted on lab work. - Receives monthly B12 injections; also on ferrous sulfate daily at home. - B12, folate levels wnl (8) DVT prophylaxis: - SCDs; ASA BID Subjective Mr. Gibson is feeling well, sitting up to a chair. Pain well controlled. Review of Systems Review of Systems: All systems reviewed & are unremarkable except as noted in HPI & below Physical Exam Physical Exam: General: no distress Eyes: normal inspection, PERLL Respiratory: chest non tender, clear to auscultation, normal breath sounds, no respiratory distress, no accessory muscle use Cardiac: regular rate and rhythm, no rub or gallop, no murmur, no edema, no jvd GI/: active bowel sounds, no abd pain or tenderness, soft, non distended Extremities: normal range of motion, normal strength, non tender Neuro/Psych: alert and oriented x 3, normal mood and affect Skin: normal color, dry Results & Data Vital Signs (Past 12 Hours) Vital Signs Temp Pulse Resp BP BP Pulse Ox 08/30/18 14:58 36.9 C 87 17 133/65 98 08/30/18 11:07 37.1 C 81 20 74/48 L 114/64 08/30/18 06:53 36.4 C L 84 20 136/66 97
[2018-08-30] MEDS: FINASTERIDE 5 MG TAB PO SCH (20:48)
[2018-08-30] MEDS: SENNA 8.6 MG TAB PO SCH (20:48)
[2018-08-30] MEDS: TAMSULOSIN HCL 0.4 MG CAP PO SCH (20:48)
[2018-08-31] MEDS ORDERED: POLYETHYLENE (MIRALAX) 17 GM PACK PO SCH (06:00)
[2018-08-31] MEDS: ASPIRIN 81 MG ECTAB PO SCH ×2 (08:38→20:23)
[2018-08-31] MEDS: FERROUS SULFATE 325 MG TAB PO SCH (08:38)
[2018-08-31] MEDS: ACETAMINOPHEN 500 MG TAB PO SCH ×3 (08:39→20:24)
[2018-08-31 09:48] LABS: Eosinophils # (auto) 0.07 K/uL (0-0.5); Eosinophils % (auto) 0.8 %; Hematocrit (blood only) 22.9 % (42-52); Hemoglobin 7.9 g/dL (14.0-18.0); Immature Granulocytes # (auto) 0.04 K/uL (0.00-0.02); Immature Granulocytes % (auto) 0.5 %; Lymphocytes # (auto) 0.96 K/uL (1.2-3.4); Lymphocytes % (auto) 11.4 %; Mean Corpuscular Hgb Conc 34.5 g/dL (32-36); Mean Platelet Volume 9.4 fL (7.4-10.4); Monocytes # (auto) 0.84 K/uL (0.11-0.59); Monocytes % (auto) 9.9 %; Neutrophils # (auto) 6.54 K/uL (1.4-6.5); Neutrophils % (auto) 77.4 %; Platelet Count 123 K/uL (130-400); RDW Coefficient of Variation 13.5 % (11.5-14.5); Red Blood Count 2.29 M/uL (4.7-6.1); White Blood Count 8.45 K/uL (4.8-10.8)
[2018-08-31 10:12] LABS: BUN Creatinine Ratio 24.9 (10-20); Calcium 8.9 mg/dl (8.5-10.1); Creatinine Clr Calc Pharmacy 26.3 ml/min; Est GFR (African American) 39.4; Potassium 3.9 mmol/L (3.5-5.1)
[2018-08-31] MEDS ORDERED: SODIUM CHLORIDE 0.9% 250 ML IV PRN (10:27)
[2018-08-31] MEDS: CHOLECALCIFEROL 1,000 UNITS TAB PO SCH (11:25)
[2018-08-31] MEDS: MULTIVITAMIN TAB PO SCH (11:25)
[2018-08-31] MEDS: SODIUM CHLORIDE 0.9% 1000ML 1,000 ML IV SCH (11:53)
--- NOTE | 2018-08-31 12:57 | Hospitalist Progress Note ---
Date of Service August 31, 2018 Assessment & Plan (1) Closed intertrochanteric fracture of right hip: - Acute mildly impacted and slightly angulated fracture of right intertrochanteric femur noted on XR following fall at home. - Hip protocol ordered. - Orthopedics consulted - to OR 08/30 - Pain control with Tylenol and Oxycodone prn. - DVT ppx ASA BID per surgery - Continue Vit D daily - level low at 23 (2) Fall: - Likely mechanical fall -- no LOC, lightheadedness noted. - Will need PT/OT evaluation prior to discharge. (3) Acute blood loss anemia: 1 unit prbcs as hgb was 7.9 and patient has increasing GEE recheck h&h this afternoon Continue ASA for now as patient is high clot risk following hip surgery (4) Acute renal failure: - Creatinine 1.76 today - PRBCs as above, continue IVF - repeat prp am (5) Ulcerative colitis: - S/p total proctocolectomy with ileostomy in 2004; also had colectomy in 2002. - Follows with Dr. Lopez - has not had any further complications. - Monitor ileostomy output - holding scheduled softeners/laxatives as pt has chronic liquid output. -Continue Lomotil as needed for diarrhea (6) BPH (benign prostatic hyperplasia): - Continue home Flomax and Finasteride. (7) Fracture of superior pubic ramus: - Chronic, noted on femur XR. (8) Anemia: - Macrocytic anemia noted on lab work. - Receives monthly B12 injections; also on ferrous sulfate daily at home. - B12, folate levels wnl (9) DVT prophylaxis: - SCDs; ASA BID Subjective Mr. Gibson feels well, pain is controlled. Review of Systems Review of Systems: All systems reviewed & are unremarkable except as noted in HPI & below Physical Exam Physical Exam: General: no distress Eyes: normal inspection, PERLL Respiratory: chest non tender, clear to auscultation, normal breath sounds, no respiratory distress, no accessory muscle use Cardiac: regular rate and rhythm, no rub or gallop, no murmur, no edema, no jvd GI/: active bowel sounds, no abd pain or tenderness, soft, non distended Extremities: normal range of motion, normal strength, non tender Neuro/Psych: alert and oriented x 3, normal mood and affect Skin: normal color, dry, right hip with large amount of ecchymosis around incision site extending around to buttock with some blood oozing from site to dressing Results & Data Vital Signs (Past 12 Hours) Vital Signs Temp Pulse Pulse Resp BP BP Pulse Ox 08/31/18 12:40 36.9 C 77 17 117/74 97 08/31/18 12:22 36.8 C 82 16 117/74 97 08/31/18 07:47 36.8 C 82 16 126/53 L 97
[2018-08-31] MEDS: SENNA 8.6 MG TAB PO SCH (20:23)
[2018-08-31] MEDS: TAMSULOSIN HCL 0.4 MG CAP PO SCH (20:24)
[2018-08-31] MEDS: FINASTERIDE 5 MG TAB PO SCH (20:24)
--- NOTE | 2018-08-31 21:30 | Progress Note ---
DATE: 08/31/2018 SUBJECTIVE: The patient is an 88-year-old gentleman postop day 2 from IM nailing of a right intertrochanteric fracture. He is doing pretty well. Pain seems to be better today. No chest pain or shortness of breath. Not feeling dizzy or lightheaded. OBJECTIVE: VITAL SIGNS: Temperature 37.1. Vital signs stable. PHYSICAL EXAMINATION: GENERAL: Reveals a pleasant elderly male. He is sitting up in bed, looks pretty comfortable. EXTREMITIES: Examination of the right leg reveals it to be well aligned. He does have quite a bit of bruising and a decent amount of swelling and some drainage from the upper incision site. His thigh, otherwise is fairly soft. He can dorsiflex and plantarflex his foot appropriately. He is neurologically intact. Leg lengths are equal. LABORATORY DATA: Hemoglobin is 9.0 after transfusion, hematocrit 26.0. Electrolytes are fairly stable. Just slightly elevated, but he has got some baseline renal insufficiency. ASSESSMENT: An 88-year-old gentleman postop day 2 from IM nailing of a right intertrochanteric fracture, doing reasonably well. He has decent amount of swelling proximally but not out of the ordinary. He did not have much bleeding at all at the time of surgery. PLAN: 1. DVT prophylaxis including thigh-high TEDs, SCDs, and aspirin twice a day. 2. PT/OT. Weight bear as tolerated, right lower extremity. 3. Pain control. Doing well on current pain regimen. 4. Anemia. Continue iron supplementation. He already got some blood. We will recheck tomorrow. No further intervention needed at this time. The swelling is liable to get worse for the next 7 days and then get better. 5. Disposition: He is orthopedically okay for discharge once medically stable. We will check his hemoglobin and hematocrit tomorrow morning. CORBY
[2018-09-01] MEDS: SODIUM CHLORIDE 0.9% 1000ML 1,000 ML IV SCH ×2 (00:34→13:57)
[2018-09-01 07:52] LABS: Basophils # (auto) 0.01 K/uL (0-0.2); Basophils % (auto) 0.1 %; Eosinophils # (auto) 0.15 K/uL (0-0.5); Eosinophils % (auto) 2.2 %; Hematocrit (blood only) 25.1 % (42-52); Hemoglobin 8.5 g/dL (14.0-18.0); Immature Granulocytes # (auto) 0.05 K/uL (0.00-0.02); Immature Granulocytes % (auto) 0.7 %; Lymphocytes # (auto) 0.92 K/uL (1.2-3.4); Lymphocytes % (auto) 13.3 %; Mean Corpuscular Hgb Conc 33.9 g/dL (32-36); Mean Platelet Volume 9.9 fL (7.4-10.4); Monocytes # (auto) 0.89 K/uL (0.11-0.59); Monocytes % (auto) 12.8 %; Neutrophils # (auto) 4.92 K/uL (1.4-6.5); Neutrophils % (auto) 70.9 %; Platelet Count 145 K/uL (130-400); RDW Coefficient of Variation 14.6 % (11.5-14.5); RDW Standard Deviation 52.2 fL (36.4-46.3); Red Blood Count 2.56 M/uL (4.7-6.1); White Blood Count 6.94 K/uL (4.8-10.8)
[2018-09-01 08:20] LABS: BUN Creatinine Ratio 32.3 (10-20); Calcium 8.6 mg/dl (8.5-10.1); Creatinine Clr Calc Pharmacy 35.1 ml/min; Est GFR (African American) 55.8; Est GFR (Non-African American) 48.2; Potassium 4.2 mmol/L (3.5-5.1)
--- NOTE | 2018-09-01 08:25 | Progress Note ---
DATE: 09/01/2018 SUBJECTIVE: An 88-year-old gentleman postop day 3 from IM nailing of a right intertrochanteric fracture. He is doing pretty well. Pain is controlled. No real complaints. OBJECTIVE: VITAL SIGNS: Temperature 36.9. Vital signs stable. GENERAL: Physical examination shows a pleasant elderly male. He is lying in bed, looks comfortable. EXTREMITIES: Examination of the right leg reveals the leg to be well aligned. He does have quite a bit of bruising around his upper incision and some moderate serosanguineous drainage. Seems to be a little bit improved. His thigh is soft and supple. He can dorsiflex and plantarflex his foot appropriately. LABORATORY DATA: His hemoglobin is stable at 9.0. ASSESSMENT: An 88-year-old gentleman postop day 3 from IM nailing of a right intertrochanteric fracture, doing okay. He has had a bit of drainage from his upper incision site, but seems to be slowing down. No need for intervention. His vital signs are stable. PLAN: 1. DVT prophylaxis including thigh-high TEDs, SCDs, and baby aspirin twice a day for 6 weeks. 2. PT/OT. He can weightbear as tolerated to the right lower extremity. 3. Anemia. We will continue iron supplementation. He appears hemodynamically stable. His wound has some drainage, but seems stable and there is no intervention at this point of the wound care. 4. Disposition: He is orthopedically okay for discharge any time medically stable. I need to see him back 2 weeks out from surgery. Any orthopedic questions can be directed to me at [phone].
[2018-09-01] MEDS: FERROUS SULFATE 325 MG TAB PO SCH (09:33)
[2018-09-01] MEDS: ACETAMINOPHEN 500 MG TAB PO SCH ×2 (09:33→13:57)
[2018-09-01] MEDS: ASPIRIN 81 MG ECTAB PO SCH (09:33)
[2018-09-01] MEDS: CHOLECALCIFEROL 1,000 UNITS TAB PO SCH (12:16)
[2018-09-01] MEDS: MULTIVITAMIN TAB PO SCH (12:16)
--- NOTE | 2018-09-01 12:38 | Discharge Summary ---
Date of Service September 01, 2018 Admission HPI Per Admitting Provider Mr. Gibson is an 88 year old male with past medical history of BPH, HLD, Venous insufficiency, Ulcerative colitis s/p total proctocolectomy with ileostomy who presented to the ER with right hip pain following a fall at home. Pt. states he was standing on a stool to reach the [employer] TV box outside. He was stepping down from step stool and fell to the ground after hitting the first step. He landed on his right side -- right elbow, hip and knee had direct contact with the ground. He denies LOC during fall, dizziness or vision changes prior to fall. Complains of pain with movement in right hip but denies pain at rest. Received Tylenol IV in the ER with improvement in pain. Denies chest pain, SOB, headache, LE edema, N/V, dysuria or retention. Has good output from ileostomy -- takes Lomotil three times daily at home to prevent liquid output. Femur XR in the ER showed acute impacted and slightly angulated fracture of the intertrochanteric right femur. Lab work showed an GEE -- likely pre-renal related to dehydration. BP was borderline low -- will require IV fluid hydration. He will be admitted to med/surg for treatment of a right intertrochanteric femur fracture. Admission Exam Per Admitting Provider General: Resting comfortably in no apparent distress HEENT: NC/AT; PERRLA with EOMI; [place] conjunctiva, MMM. No erythema of posterior pharynx Neck: Supple and nontender Cardiac: RRR w/o murmurs, gallops or rubs Lungs: CTA bilaterally; No rhonchi, wheezing, or rales Abdomen: Bowel normoactive X 4; Nontender to palpation Rectal: Deferred : Deferred Back: NO spinous tenderness Extremities: Warm. No edema present. No tenderness to palpation noted over right femur. Neuro: No focal weakness Skin: No rash Principal Diagnosis Closed Right Hip Fracture Discharge Exam General: Resting comfortably in no apparent distress HEENT: NC/AT; PERRLA with EOMI; [place] conjunctiva, MMM. No erythema of posterior pharynx Neck: Supple and nontender Cardiac: RRR w/o murmurs, gallops or rubs Lungs: CTA bilaterally Abdomen: Bowel normoactive X 4; Nontender to palpation Extremities: Warm. No edema present Neuro: No focal weakness Skin: No rash Discharge Data Allergies Allergy/AdvReac Type Severity Reaction Status Date / Time No Known Allergies Allergy Unknown Verified 01/15/05 21:07 morphine AdvReac Unknown GI Verified 08/28/18 13:05 INTOLERANCE TO MORPHINE Consultations 08/28/18 14:35 ED Decision to Admit Stat 08/28/18 16:56 Consult Case Management - Discharge Planning Routine Consult Orthopedic Surgery Routine 08/29/18 16:28 Consult Case Management - Discharge Planning Routine Procedures Performed Operation Date: 08/29/18 07:00 Actual Procedures p Right Long Intramedullary(Right) - Brandon Hamm MD Ordered Studies 08/29/18 07:00 FL fluoroscopy <1hr Routine FL hip RT 2-3V Routine Hospital Course (1) Closed intertrochanteric fracture of right hip: Acute mildly impacted and slightly angulated fracture of right intertrochanteric femur noted on XR following fall at home. Orthopedics consulted; s/p right long cephalomedullary nailing of right intertrochanteric hip fracture on 08/28/18. Pain control with Tylenol 1 gm TID. ASA 81 mg BID for 6 week course for DVT ppx. Vit D level was low -- Vit D replacement daily. (2) Fall: Likely mechanical fall -- no LOC, lightheadedness noted. PT/OT recommended acute rehab -- will be discharged to [facility]. (3) Acute blood loss anemia: Decreasing hgb in setting of blood loss during procedure, IV fluids. Received transfusion support with improvement. F/u labs at [facility] in 2-3 days. Also receives monthly B12 injections. (4) Acute renal failure: Creatinine trended up -- likely related to dehydration vs. blood loss. Improved with IV fluids and PRBC transfusion. Monitor renal function in 2-3 days. (5) Ulcerative colitis: S/p total proctocolectomy with ileostomy in 2004; also had colectomy in 2002. Follow[address] Lopez - has not had any further complications. Monitor ileostomy output - holding scheduled softeners/laxatives as pt has chronic liquid output. Continued Lomotil as needed for diarrhea (6) BPH (benign prostatic hyperplasia): Continued home Flomax and Finasteride. (7) Fracture of superior pubic ramus: Chronic, noted on femur XR. (8) DVT prophylaxis: Aspirin 81 mg BID. Pt. was stable for discharge to [facility] on 09/01/18. Total Time Total Time Spent Total Time Spent (In Minutes): >30 minutes Total Time Includes: Examination of the Patient, Discharge Planning, Medication Reconciliation, Communication With Other Providers and Other Discharge Plan Discharge Items Patient Disposition: Transfer Inpatient Rehab Fac Reason For Visit: HIP FRACTURE Discharge Diagnosis: IM Nail of Right Hip Fracture Condition: Good Discharge Goals: Decrease discomfort, Improve disease control, Improve function, Increase independence and Therapeutic intervention Activity: Per 'Additional Instructions' section Activity Comment: No restrictions Weightbearing: Right weightbearing Weightbearing Comment: May fully weightbear as tolerated. Non-emergency contact: Primary Care Provider and Surgeon Call non-emergency contact if: you have any medication questions, your symptoms worsen, your pain is not controlled, your pain is worsening, your pain is unusual for you, your pain is concerning for you and you have a fever Follow-up/Referrals: Paula Pro MD [Primary Care Provider] - Brandon Hamm MD [Surgeon] - (Schedule return orthopedic follow-up for 2 weeks from surgery date.) Diet: Regular Addtl Provider Instructions: 1. Closed Intertrochanteric Fracture of the Right Hip * S/p right long cephalomedullary nailing. * Aspirin 81 mg BID for DVT prophylaxis for 6 week course. * Continue physical therapy - can be weight bearing as tolerated. * Please follow up with orthopedics in 2 weeks -- appt will need to be scheduled, please call [phone]. * Pain control: Tylenol 1 gm TID scheduled. He has not been requiring narcotics for pain control. 2. Acute blood loss anemia * S/p transfusion; H/H is now stable. * Please monitor CBC q1-2 days. * Continue ferrous sulfate 325 mg daily. 3. Acute Renal Failure * Creatinine is trending down with IV fluid hydration. * Please monitor BMP q2-3 days. 4. Please schedule an appointment with his PCP following discharge from [facility]. Prescriptions: New aspirin [Ecotrin Low Strength] 81 mg Tablet,Delayed Release (Dr/Ec) 81 mg PO BID 1 Days Qty: 2 RF: 0 acetaminophen [Tylenol Extra Strength] 500 mg Tablet 1,000 mg PO TID 1 Days Qty: 6 RF: 0 Continued multivitamin Tablet 1 tab PO QDL RF: 0 diphenoxylate-atropine 2.5-0.025 mg Tablet 1 tab PO TID RF: 0 potassium 99 mg Tablet 99 mg PO BID RF: 0 tamsulosin 0.4 mg Capsule 0.4 mg PO HS RF: 0 cyanocobalamin (vitamin B-12) 1,000 mcg/mL Solution IM MONTHLY RF: 0 ferrous sulfate 325 mg (65 mg iron) Tablet 325 mg PO QAM RF: 0 finasteride 5 mg Tablet 5 mg PO HS RF: 0 cholecalciferol (vitamin D3) [Vitamin D3] 2,000 unit Capsule 2,000 unit PO QDL RF: 0 Discontinued naproxen sodium [Aleve] 220 mg Tablet 220 mg PO Q12H PRN (Reason: Pain) RF: 0 Stand-Alone Forms: [employer] [facility] Skilled Items Patient informed of condition?: Yes DNR: Yes Discharge Level of Care: Acute rehab Communicable Disease: No Discharge Prognosis: Improving Admission Data Admit Date/Time: 08/28/18 16:03 Attending Provider: Vahe Burton Admit Provider: Vane Calderon Primary Care Provider: Paula Pro Other Providers: Vane Calderon ; Brandon Hamm Service: Surgical Services Other Pending Studies at Discharge: No
== END 2018-09-01 17:00 | DRG 481 ==
LOC: ED 12:38 → SUATTDRO 16:03 → 3W 16:03

== ENCOUNTER 2019-03-12 15:59 | Inpatient (IN) ==
[2019-03-12] MEDS ORDERED: SODIUM CHLORIDE 0.9% 1000ML 1,000 ML IV SCH (16:30)
[2019-03-12 16:56] LABS: Basophils # (auto) 0.01 K/uL (0-0.2); Basophils % (auto) 0.1 %; Eosinophils # (auto) 0.01 K/uL (0-0.5); Eosinophils % (auto) 0.1 %; Hematocrit (blood only) 41.8 % (42-52); Hemoglobin 14.2 g/dL (14.0-18.0); Immature Granulocytes # (auto) 0.03 K/uL (0.00-0.02); Immature Granulocytes % (auto) 0.4 %; Lymphocytes # (auto) 0.46 K/uL (1.2-3.4); Lymphocytes % (auto) 6.2 %; Mean Corpuscular Hemoglobin 36.2 pg (25-34); Mean Corpuscular Volume 106.6 fL (80-100); Mean Platelet Volume 9.4 fL (7.4-10.4); Monocytes # (auto) 0.74 K/uL (0.11-0.59); Neutrophils # (auto) 6.18 K/uL (1.4-6.5); Neutrophils % (auto) 83.2 %; Platelet Count 250 K/uL (130-400); RDW Coefficient of Variation 13.5 % (11.5-14.5); RDW Standard Deviation 52.6 fL (36.4-46.3); Red Blood Count 3.92 M/uL (4.7-6.1); White Blood Count 7.43 K/uL (4.8-10.8)
[2019-03-12 17:25] LABS: Alanine Aminotransferase 38 U/L (12-78); Albumin Level 3.9 gm/dl (3.4-5.0); Aspartate Aminotransferase 52 U/L (15-37); Blood Urea Nitrogen 39 mg/dl (7-18); Calcium 9.9 mg/dl (8.5-10.1); Carbon Dioxide 29 mmol/L (21-32); Chloride 96 mmol/L (98-107); Est GFR (African American) 22.9; Est GFR (Non-African American) 19.7; Glucose 128 mg/dl (70-99); Potassium 3.9 mmol/L (3.5-5.1); Sodium 135 mmol/L (136-145)
[2019-03-12 17:36] LABS: Albumin Globulin Ratio 0.8 (0.9-2); Alkaline Phosphatase 122 U/L (45-117); Bilirubin,Total 1.1 mg/dl (0.2-1); Phosphorus 4.2 mg/dl (2.5-4.9); Thyroid Stimulating Hormone 0.494 uIu/ml (0.300-4.500); Total Protein 8.9 gm/dl (6.4-8.2)
[2019-03-12] MEDS ORDERED: SODIUM CHLORIDE 0.9% 1000ML 1,000 ML IV ONE (17:46)
--- NOTE | 2019-03-12 20:07 | History & Physical Report ---
Date of Service March 12, 2019 Assessment & Plan (1) GEE (acute kidney injury): Admit to PCU on telemetry Gastroenteritis appears to be due to viral illness. Many cases noted in the ER similar to patient. Vital signs every 4 hours Avoid nephrotoxic agents Patient baseline creatinine is 1.3 with GFR of 48.2. Patient's current creatinine is 2.76 with GFR of 19.7 Continue gentle IV fluid hydration normal saline at 80 cc/h DVT prophylaxis SCDs Patient is a full code Present on Admission?: Yes (2) Dehydration: As the above Present on Admission?: Yes (3) History of ulcerative colitis: Appears to be stable at this time. Continue monitoring Present on Admission?: Yes (4) Osteoporosis: Continue home medicine: Vitamin D3 2000 units/day, alendronate 70 mg p.o. weekly. Present on Admission?: Yes (5) Hypertension: Stable, continue monitoring every 4 hours. Present on Admission?: Yes (6) Vitamin B12 deficiency: Continue cyanocobalamin thousand MCG's subacute monthly Present on Admission?: Yes (7) Vitamin D deficiency: Continue vitamin D3 2000 units p.o. daily Present on Admission?: Yes (8) BPH (benign prostatic hyperplasia): Stable, chronic disease continue finasteride 5 mg p.o. nightly, tamsulosin 0.4 mg p.o. nightly. Present on Admission?: Yes (9) Diarrhea: Continue treating viral gastroenteritis. Continue Lomotil 1 mg p.o. twice daily. Present on Admission?: Yes History of Present Illness Chief Complaint: Gastroenteritis Primary Care Provider: Paula Pro MD Patient is a 88 years old male with past medical history of hypertension, hyperlipidemia, benign prostatic hypertrophy, chronic ulcerative colitis, status post colostomy 2002, who presented today with a flulike illness and increased production from his ostomy than usual. Patient also had Mohs surgery for melanoma 2 weeks ago at [place]. Patient reports that he go to the bathroom every hour and acting his colostomy about every hour and and a half. He states that his diarrhea has been accompanied pain by cramps dehydration and chills but no hematochezia nausea, vomiting, abdominal pain, urinary symptoms and leg swelling. Patient reports that his appetite is good and he is eating and drinking well. Patient denies fever, chills, chest pain, shortness of breath, abdominal pain, frequency, urgency. Labs are reviewed: WBCs 7.43, hemoglobin 14.2, hematocrit 41.8, platelets 250, sodium 135, potassium 3.9, chloride 96, anion gap 10, BUN 39, creatinine 2.76, GFR 19.7, total bili 1.1, AST 52, ALT 38, alkaline phosphatase 122, total protein 8.9, TSH 0.494. Decision was made to admit patient to PCU on telemetry for acute kidney injury and gastroenteritis. Allergies Allergy/AdvReac Type Severity Reaction Status Date / Time morphine AdvReac Unknown GI Verified 03/12/19 16:52 INTOLERANCE TO MORPHINE Home Medications Home Medications Medication Instructions Recorded Confirmed Type cholecalciferol (vitamin D3) 2,000 unit PO QDL 08/28/18 03/12/19 History [Vitamin D3] ferrous sulfate 325 mg PO QAM 08/28/18 03/12/19 History multivitamin 1 tab PO QDL 08/28/18 03/12/19 History tamsulosin 0.4 mg capsule 0.4 mg PO HS #90 cap 09/10/18 03/12/19 Rx cyanocobalamin (vitamin B-12) 1,000 mcg SQ MONTHLY ml 12/14/18 03/12/19 History 1,000 mcg/mL injection solution acetaminophen 1,300 mg PO Q12H PRN 03/12/19 03/12/19 History alendronate [Fosamax] 70 mg PO WK 03/12/19 03/12/19 History diphenoxylate-atropine [Lomotil] 1 tab PO BID 03/12/19 03/12/19 History finasteride [Proscar] 5 mg PO HS 03/12/19 03/12/19 History Past Med/Surg History Medical History BPH (benign prostatic hyperplasia) Colitis (Chronic) Colostomy present (Chronic) Degenerative disk disease History of basal cell carcinoma (Resolved) HLD (hyperlipidemia) Surgical History History of bilateral knee replacement History of partial surgical removal of colon Status post Mohs surgery Family History Other Family history non-contributory Social History Preferred Language: Sami Communication Ability: Effective Nut Roaster Required: No Beliefs That Will Affect Care: None marital status: Current Living Situation: Spouse current occupational status: retired Other Information That Helps Us Care for You: No Feels Safe at Home: Yes Safety Concerns: Feels Safe At This Time Smoking Status: Never smoker Do You Dip or Chew Tobacco: No ; Second Hand Exposure: No ; Tobacco Cessation Education Requested by Patient: No Hx Alcohol Use: No Hx Substance Use: No Dental Care, Regularly: Yes Seatbelt Use: always Review of Systems Review of Systems: All systems reviewed & are unremarkable except as noted in HPI & below Physical Exam Constitutional: WD/WN, vitals as above well developed, + ill appearing and + cachectic Eyes: PERRL, conjunctivae normal, anicteric sclerae ENMT: external ear and nose normal, oropharynx normal Neck: trachea midline, no thyromegaly Respiratory: normal respiratory effort, lungs clear to auscultation Cardiovascular: RRR, no murmur, no edema Vessels: dorsalis pedis pulses present Gastrointestinal (Abdomen): normal bowel sounds, soft, nontender, no hepatosplenomegaly Stoma -looks pink. Located at the right lower quadrant. Musculoskeletal: no cyanosis or clubbing, extremities motor strength 5/5 Skin: no rashes, warm and dry Neurologic: patellar DTR's 2+ bilat, sensation intact Psychiatric: A+Ox3, euthymic affect Lymphatic: no cervical or axillary lymphadenopathy Results & Data Vital Signs (Past 12 Hours) Vital Signs Temp Pulse Pulse Resp BP BP Pulse Ox 03/12/19 18:11 88 18 157/74 H 96 03/12/19 16:02 36.8 C 105 H 20 109/64 97 Code Status & VTE Plan Code Status Full code VTE Prophylaxis Plan VTE Prophylaxis will be ordered: Yes PG Care Time/CCT Total # of Minutes Spent Total Time Spent with Patient: Total time spent is greater than 50% in coordination of care (as documented) at patient's floor/unit and/or counseling patient:
[2019-03-12] MEDS ORDERED: ACETAMINOPHEN 325 MG TAB PO PRN (20:30)
[2019-03-12] MEDS ORDERED: ALUMINUM/MAGNESIUM SUSP 30 ML UDC PO PRN (20:30)
[2019-03-12] MEDS ORDERED: MAGNESIUM HYDROXIDE SUSP 30 ML UDC PO PRN (20:30)
[2019-03-12] MEDS ORDERED: ONDANSETRON INJ 2 MG/ML 2 ML VIAL IV PRN (20:30)
--- NOTE | 2019-03-12 20:43 | Emergency Department Note ---
Entered by Radha Askew acting as a scribe for History of Present Illness General Chief complaint: Diarrhea Stated complaint: DIARRHEA, DEHYDRATED, WEAK Time Seen by Provider: 03/12/19 16:15 Source: patient and family () Mode of arrival: ambulatory Limitations: no limitations History of Present Illness Provider complaint: Diarrhea Onset (ago): day(s) (yesterday) Location: abdomen (right lower quadrant ileostomy bag) Radiation: non-radiation Pain Consistency: + other (persistent) Quality: + other (diarrhea) Associated symptoms: + fever/chills and + other (Additional symptoms: cramps, dehydration. Denies: hematochezia, abdominal pain, urinary symptoms, leg swellin g); no loss of appetite and no nausea/vomiting Treatments prior to arrival: none The patient is an 88 year old white male w/ PMHx of ulcerative colitis, colostomy since 2002, Mohs surgery for melanoma, BPH, hyperlipidemia, and bilateral knee replacement who presents to the ED w/ CC of persistent diarrhea beginning yesterday. The patient reports that he has had to go to the bathroom every hour and empty his colostomy about every hour and a half. He states that his diarrhea has been accompanied by cramps, dehydration, and chills but no hematochezia, nausea, vomiting, abdominal pain, urinary symptoms, and leg sw elling. The patient also denies any recent trauma and antibiotic use, and he notes that he has not noticed any masses. He indicates that he has been eating and drinking well. His mentions that she had a virus a few days before the patient's symptoms presented, and the patient indicates that he received a flu shot at least a month ago. The patient reports that his PCP is Dr. Pro and that he follows [facility]. Home Medications Home Medications Medication Instructions Recorded Confirmed Type cholecalciferol (vitamin D3) 2,000 unit PO QDL 08/28/18 03/12/19 History [Vitamin D3] ferrous sulfate 325 mg PO QAM 08/28/18 03/12/19 History multivitamin 1 tab PO QDL 08/28/18 03/12/19 History tamsulosin 0.4 mg capsule 0.4 mg PO HS #90 cap 09/10/18 03/12/19 Rx cyanocobalamin (vitamin B-12) 1,000 mcg SQ MONTHLY ml 12/14/18 03/12/19 History 1,000 mcg/mL injection solution acetaminophen 1,300 mg PO Q12H PRN 03/12/19 03/12/19 History alendronate [Fosamax] 70 mg PO WK 03/12/19 03/12/19 History diphenoxylate-atropine [Lomotil] 1 tab PO BID 03/12/19 03/12/19 History finasteride [Proscar] 5 mg PO HS 03/12/19 03/12/19 History Allergies Allergy/AdvReac Type Severity Reaction Status Date / Time morphine AdvReac Unknown GI Verified 03/12/19 16:52 INTOLERANCE TO MORPHINE Past Med/Surg History Medical History BPH (benign prostatic hyperplasia) Colitis (Chronic) Colostomy present (Chronic) Degenerative disk disease History of basal cell carcinoma (Resolved) HLD (hyperlipidemia) Surgical History History of bilateral knee replacement History of partial surgical removal of colon Status post Mohs surgery Family History Other Family history non-contributory Social History Preferred Language: Serbian Communication Ability: Effective 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 and A total of 10 systems reviewed and were otherwise negative Physical Exam Vital Signs Vital Signs - 24 hr 03/12/19 16:02 03/12/19 18:11 Temperature 36.8 C Temperature Source Oral Pulse Rate 105 H Pulse Rate [Right Finger] 88 Respiratory Rate 20 18 Respiratory Effort / Characteristics Non-Labored Spontaneous Respiratory Depth Normal Blood Pressure 109/64 Blood Pressure [Right Arm] 157/74 H Blood Pressure Mean 79 Blood Pressure Mean [Right Arm] 101 Blood Pressure Position Sitting Pulse Oximetry 97 96 Oxygen Delivery Method Room Air Sepsis Recent Fever Within 48 Hours No Sepsis New/Unexplained Change in Mental Status No Sepsis Action Taken by Nursing No Action Required GENERAL: Well appearing, well nourished, NAD, non-toxic. Bandage to the right face. EYE EXAM: Normal conjunctiva. PERRL, no anisocoria and EOM's grossly intact w/o pain. OROPHARYNX: Dry mucous membranes. Grossly normal dentition. NECK: Supple, no nuchal rigidity, no adenopathy, non-tender. No signs of meningi smus. LUNGS: Clear to auscultation. Normal chest wall mechanics. HEART: NSR, no MRG. ABDOMEN: Abdomen soft, non-tender, normo-active bowel sounds, no masses, no rebound or guarding. Ostomy bag in right lower quadrant. BACK: No CVA TTP. SKIN: No rashes and no bruising. UPPER EXTREMITIES: Upper extremities are grossly normal. LOWER EXTREMITIES: No pitting edema. No calf pain. NEURO EXAM: A&O x3, cranial nerves II-XII grossly intact, normal speech, moves all 4 extremities on command w/o issue. Course Course 1622: The patient was evaluated in room C10, and a complete history and physical examination were performed. 1628: Orders were placed. The patient was started on a quality assurance monitor chassis at this time. 1739: I reviewed the patient's case with Dr. Hackett - Skinny, Simone Caceres. Dr. Hackett will evaluate the patient for further management. 1745: On reevaluation, the patient is resting. I discussed the results and findings with the patient and his family. The patient is agreeable to admission. Consultations Consultation #1: I reviewed the patient's case with Dr. Hackett - Skinny, Simone Caceres. Dr. Hackett will evaluate the patient for further management. Time: 17:39 Administered Medications Diphenoxylate HCl/Atropine (Lomotil) 1 tab PO BID [facility] Stop: 04/11/19 20:59 Last Admin: 03/13/19 08:22 Dose: 1 tab Documented by: [id number] Admin: 03/12/19 21:27 Dose: 1 tab Documented by: [id number] Ferrous Sulfate (Feosol) 325 mg PO QAM [facility] Stop: 04/12/19 08:59 Last Admin: 03/13/19 08:22 Dose: 325 mg Documented by: [id number] Finasteride (Proscar) 5 mg PO [facility] Stop: 04/11/19 20:59 Last Admin: 03/12/19 21:26 Dose: 5 mg Documented by: [id number] Sodium Chloride (Nss 1000ml) 1,000 mls @ 120 mls/hr IV .Q8H20M JAMAR Stop: 04/11/19 20:29 Last Admin: 03/13/19 10:33 Dose: 120 mls/hr Documented by: [id number] Infusion: 03/13/19 09:55 Dose: 80 mls/hr Documented by: [id number] Admin: 03/12/19 21:25 Dose: 80 mls/hr Documented by: [id number] Multivitamins (Multivitamin Tab) 1 tab PO QDL [facility] Stop: 04/12/19 11:29 Last Admin: 03/13/19 11:12 Dose: 1 tab Documented by: [id number] Tamsulosin HCl (Flomax) 0.4 mg PO [facility] Stop: 04/11/19 20:59 Last Admin: 03/12/19 21:26 Dose: 0.4 mg Documented by: [id number] Vitamin D (Vitamin D3) 2,000 units PO QDL JAMAR Stop: 04/12/19 11:29 Last Admin: 03/13/19 11:12 Dose: 2,000 units Documented by: [id number] Discontinued Medications Sodium Chloride (Nss 1000ml) 1,000 mls @ 999 mls/hr IV .Q1H1M JAMAR Stop: 03/12/19 17:30 Last Infusion: 03/12/19 18:07 Dose: 0 mls/hr Documented by: [id number] Admin: 03/12/19 17:16 Dose: 999 mls/hr Documented by: [id number] Sodium Chloride (Nss 1000ml) 1,000 mls @ 999 mls/hr IV .Q1H1M ONE Stop: 03/12/19 18:46 Last Infusion: 03/12/19 19:07 Dose: 0 mls/hr Documented by: [id number] Admin: 03/12/19 18:07 Dose: 999 mls/hr Documented by: [id number] Sodium Chloride (Nss 1000ml) 500 mls @ 999 mls/hr IV .Q31M ONE Stop: 03/13/19 11:06 Last Infusion: 03/13/19 11:22 Dose: 0 mls/hr Documented by: [id number] Admin: 12/23/19 10:49 Dose: 999 mls/hr Documented by: [id number] Medical Decision Making Differential Diagnosis Differential diagnosis: Etiologies such as gastroenteritis, food borne illness, infections, appendicitis, diverticulitis, inflammatory bowel disease, obstruction, GI bleed, biliary pathology, cardiac process, intracranial process, as well as others were entertained. Medical Records Attestation: I reviewed the patient's medical records. Home Medications Current Medication List: was personally reviewed by me Laboratory Data Attestation: I reviewed the patient's lab results. Result diagrams: 03/12/19 16:49 03/13/19 08:33 Lab Results 03/12/19 03/12/19 Range/Units 16:49 16:49 WBC 7.43 (4.8-10.8) K/uL RBC 3.92 L (4.7-6.1) M/uL Hgb 14.2 (14.0-18.0) g/dL Hct 41.8 L (42-52) % MCV 106.6 H (80-100) fL MCH 36.2 H (25-34) pg MCHC 34.0 (32-36) g/dL RDW Std Deviation 52.6 H (36.4-46.3) fL RDW Coeff of Toan 13.5 (11.5-14.5) % Plt Count 250 (130-400) K/uL MPV 9.4 (7.4-10.4) fL Immature Gran % (Auto) 0.4 % Neut % (Auto) 83.2 % Lymph % (Auto) 6.2 % Saunders % (Auto) 10.0 % Eos % (Auto) 0.1 % Baso % (Auto) 0.1 % Immature Gran # (Auto) 0.03 H (0.00-0.02) K/uL Neut # (Auto) 6.18 (1.4-6.5) K/uL Lymph # (Auto) 0.46 L (1.2-3.4) K/uL Saunders # (Auto) 0.74 H (0.11-0.59) K/uL Eos # (Auto) 0.01 (0-0.5) K/uL Baso # (Auto) 0.01 (0-0.2) K/uL Sodium 135 L (136-145) mmol/L Potassium 3.9 (3.5-5.1) mmol/L Chloride 96 L (98-107) mmol/L Carbon Dioxide 29 (21-32) mmol/L Anion Gap 10.0 (3-11) BUN 39 H (7-18) mg/dl Creatinine 2.76 H (0.6-1.4) mg/dl Est Cr Clr Drug Dosing Not Reportable Est GFR ( Amer) 22.9 Est GFR (Non-Af Amer) 19.7 BUN/Creatinine Ratio 14.0 (10-20) Glucose 128 H (70-99) mg/dl Calcium 9.9 (8.5-10.1) mg/dl Phosphorus 4.2 (2.5-4.9) mg/dl Magnesium 2.0 (1.8-2.4) mg/dl Total Bilirubin 1.1 H (0.2-1) mg/dl AST 52 H (15-37) U/L ALT 38 (12-78) U/L Alkaline Phosphatase 122 H (45-117) U/L Total Protein 8.9 H (6.4-8.2) gm/dl Albumin 3.9 (3.4-5.0) gm/dl Globulin 5.0 H (2.5-4.0) gm/dl Albumin/Globulin Ratio 0.8 L (0.9-2) TSH 0.494 (0.300-4.500) uIu/ml ECG Data Attestation: I personally reviewed and interpreted this ECG as follows: Indication: + other (diarrhea) Rate (beats per minute): 84 Rhythm: + sinus rhythm ECG [place]: + Normal ECG ST segments: + Normal ST segments (no ST changes) ECG Findings: + Other (normal intervals) Blood Pressure Blood Pressure Findings: Elevated blood pressure Blood Pressure Disposition: further management by hospitalist MDM Narrative The patient is an 88 year old white male w/ PMHx of colostomy since 2002, Mohs surgery for melanoma, BPH, colitis, hyperlipidemia, and bilateral knee replaceme nt who presents to the ED w/ CC of persistent diarrhea beginning yesterday. Patient was seen and evaluated the bedside. Patient did present with a history of worsening ostomy output. Patient did a blood work completed which shows GEE. I did order additional IV fluids and the patient was subsequently admitted to the medicine service. Patient does not have any abdominal pain do not think he requires a CT scan. Normal white count. No bloody output the patient has normal hemoglobin. Impression & Plan GEE (acute kidney injury), Dehydration, History of ulcerative colitis Discharge Plan Visit Data *Final* Discharge Date/Time: 03/12/19 20:06 Chief Complaint: Diarrhea Stated Complaint: DIARRHEA, DEHYDRATED, WEAK ED Provider: Malvin Hopkins Discharge Problem: GEE (acute kidney injury), Dehydration, History of ulcerative colitis Patient Disposition: Admitted As Inpatient Discharge Instructions Interventions: ED Discharge Assessment Last Done: 03/12/19 20:06 The scribe's documentation has been prepared under my direction and personally reviewed by me in its entirety. I confirm that the note above accurately reflects all work, treatment, procedures, and medical decision making performed by me.
[2019-03-12] MEDS ORDERED: FINASTERIDE 5 MG TAB PO SCH (21:00)
[2019-03-12] MEDS ORDERED: TAMSULOSIN HCL 0.4 MG CAP PO SCH (21:00)
[2019-03-12] MEDS: SODIUM CHLORIDE 0.9% 1000ML 1,000 ML IV SCH (21:25)
[2019-03-12] MEDS: DIPHENOXYLATE/ATROPINE 2.5/0.025MG TAB PO SCH (21:27)
[2019-03-13] MEDS: DIPHENOXYLATE/ATROPINE 2.5/0.025MG TAB PO SCH (08:22)
[2019-03-13] MEDS ORDERED: FERROUS SULFATE 325 MG TAB PO SCH (09:00)
[2019-03-13 09:45] LABS: BUN Creatinine Ratio 21.7 (10-20); Creatinine Clr Calc Pharmacy 24.3 ml/min; Est GFR (African American) 38.4; Est GFR (Non-African American) 33.1; Potassium 3.7 mmol/L (3.5-5.1)
--- NOTE | 2019-03-13 10:19 | Discharge Summary ---
Date of Service March 13, 2019 Admission HPI Per Admitting Provider Patient is a 88 years old male with past medical history of hypertension, hyperlipidemia, benign prostatic hypertrophy, chronic ulcerative colitis, status post colostomy 2002, who presented today with a flulike illness and increased production from his ostomy than usual. Patient also had Mohs surgery for melanoma 2 weeks ago at [place]. Patient reports that he go to the bathroom every hour and acting his colostomy about every hour and and a half. He states that his diarrhea has been accompanied pain by cramps dehydration and chills but no hematochezia nausea, vomiting, abdominal pain, urinary symptoms and leg swelling. Patient reports that his appetite is good and he is eating and drinking well. Patient denies fever, chills, chest pain, shortness of breath, abdominal pain, frequency, urgency. Labs are reviewed: WBCs 7.43, hemoglobin 14.2, hematocrit 41.8, platelets 250, sodium 135, potassium 3.9, chloride 96, anion gap 10, BUN 39, creatinine 2.76, GFR 19.7, total bili 1.1, AST 52, ALT 38, alkaline phosphatase 122, total protein 8.9, TSH 0.494. Decision was made to admit patient to PCU on telemetry for acute kidney injury and gastroenteritis. Admission Exam Per Admitting Provider Constitutional: WD/WN, vitals as above well developed, + ill appearing and + cachectic Eyes: PERRL, conjunctivae normal, anicteric sclerae ENMT: external ear and nose normal, oropharynx normal Neck: trachea midline, no thyromegaly Respiratory: normal respiratory effort, lungs clear to auscultation Cardiovascular: RRR, no murmur, no edema Vessels: dorsalis pedis pulses present Gastrointestinal (Abdomen): normal bowel sounds, soft, nontender, no hepatosplenomegaly Stoma -looks pink. Located at the right lower quadrant. Musculoskeletal: no cyanosis or clubbing, extremities motor strength 5/5 Skin: no rashes, warm and dry Neurologic: patellar DTR's 2+ bilat, sensation intact Psychiatric: A+Ox3, euthymic affect Lymphatic: no cervical or axillary lymphadenopathy Principal Diagnosis Viral gastroenteritis Discharge Exam General: A&Ox3. NAD. Cooperative. HEENT: Atraumatic, normocephalic. Pulm: CTAB A&P. -wheezes, -rales, -rhonchi. Symmetrical chest rise. No increase work of breathing. No respiratory distress. Cardiac: RRR, -mrg. Radial pulses intact and symmetrical. Abdominal: Stoma in place @ RLQ, ostomy bag empty. Nontender, nondistended, soft. BS present. Discharge Data Allergies Allergy/AdvReac Type Severity Reaction Status Date / Time morphine AdvReac Unknown GI Verified 03/12/19 16:52 INTOLERANCE TO MORPHINE Consultations 03/12/19 17:46 ED Decision to Admit Stat Hospital Course (1) Viral gastroenteritis: Mr. Gibson is an 88-year-old male with past medical history of ulcerative colitis status post colon resection with colostomy, BPH, hypertension, and hyperlipidemia who presented with increased ostomy output and acute illness consistent with viral gastroenteritis. To do as outpatient: 1. Repeat BMP to ensure kidney function returns to baseline (baseline approximately 1.3, creatinine downtrending at discharge but remaining at 1.8) Diarrhea, increased ostomy output 2/2 viral gastroenteritis Mr. Gibson presented with diarrhea, and increased ostomy output. His diarrhea was accompanied with cramps, chills but he did not have any vomiting or urinary symptoms. No recent trauma. He had associated GEE treated as below. He was admitted and treated with supportive care and improved with symptomatic treatment. Remained afebrile and had good oral intake. He did not experience hemodynamic instability or profound hypotension. His symptoms gradually improved, and he was asymptomatic at time of discharge. No additional imaging was performed.He did not have any profound electrolyte abnormalities, although his GEE was treated as below. He was discharged to follow-up with his PCP. No further intervention from gastroenterology was indicated. Acute kidney injury on CKD Mr. Gibson experienced a acute rise in his baseline creatinine of approximately 1.3 to 2.7 likely due to prerenal GEE versus prerenal azotemia in the setting of gastroenteritis. He was treated with supportive care and IV fluid hydration and his creatinine down trended the next day. His creatinine was not yet within normal limits, and he was discharged to have a repeat BMP with follow-up to his primary care provider. He was urinating well without complaint at time of discharge. BPH Mr. Gibson had his prior to admission medications including Fosamax, finasteride, and Flomax continued during admission and did not experience an exacerbation of BPH/obstructive symptoms. He was urinating well at time of discharge. (2) Diarrhea: (3) GEE (acute kidney injury): (4) Dehydration: (5) History of ulcerative colitis: (6) Osteoporosis: (7) Hyperlipidemia: (8) Hypertension: (9) Hyponatremia: (10) Vitamin B12 deficiency: (11) Vitamin D deficiency: (12) Acute blood loss anemia: (13) Fall: (14) DVT prophylaxis: (15) Fracture of superior pubic ramus: (16) Acute renal failure: (17) BPH (benign prostatic hyperplasia): (18) Ulcerative colitis: (19) Closed intertrochanteric fracture of right hip: (20) Colostomy present: (21) Colitis: Total Time Total Time Spent Total Time Spent (In Minutes): <30 Discharge Plan Discharge Items Patient Disposition: Home - Self-Care Reason For Visit: GASTROENTERITIS Discharge Diagnosis: Viral gastroenteritis Activity: Resume your previous activity Non-emergency contact: Primary Care Provider Call non-emergency contact if: you have any medication questions, your symptoms worsen, your pain is not controlled, your pain is worsening, your pain is unusual for you, your pain is concerning for you, you have a fever and your wound has increased redness Follow-up/Referrals: Paula Pro MD [Primary Care Provider] - 03/20/19 10:00 am (Please, follow up at [facility] with Dr. Pro on WednesdayMarch 20 at 10:00 am. *If you need to change this appointment, call the offoce at [phone].) Diet: Regular Addtl Attending Provider Instructions: You were seen in the hospital for gastrointestinal symptoms most likely due to viral gastroenteritis. Your symptoms improved with supportive care, and you are being discharged home without medication changes. You have not been prescribed any new medications. Your kidney function was elevated due to dehydration and was improving at time of discharge. It was not yet normal, you should have a BMP to recheck your c reatinine in 2 to 3 days and follow-up with your primary care provider regarding the results. You have been given a prescription for a BMP, you may take this to any lab to have this blood work performed. Your symptoms are most likely due to viral gastroenteritis. You should be seen for follow-up with your primary care provider within 1 week. An appointment is being made for you with Dr. Pro. You should receive a call to confirm your appointment within 48 hours. If you do not receive a call, or need to cancel or change your appointment, please call her office at [phone]. If you experience any new, recurrent, worsening, or concerning symptoms including fever, chills, sweats, chest pain, chest pressure, shortness of breath, difficulty breathing, passing out or nearly passing out, worsening ostomy output, abdominal pain, or other new or concerning symptoms please contact your primary care provider, or call 911 for transfer to an reassessment in the emergency department if you are very concerned. Pending Studies at Discharge: Yes Studies:: Repeat BMP Stand-Alone Forms: My [facility], Smoking Cessation Medications and DC Order Prescriptions: Continued tamsulosin 0.4 mg capsule 0.4 mg PO HS Qty: 90 RF: 0 cyanocobalamin (vitamin B-12) 1,000 mcg/mL solution 1,000 mcg SQ MONTHLY RF: 0 diphenoxylate-atropine [Lomotil] 2.5-0.025 mg Tablet 1 tab PO BID RF: 0 alendronate [Fosamax] 70 mg tablet 70 mg PO WK RF: 0 finasteride [Proscar] 5 mg tablet 5 mg PO HS RF: 0 acetaminophen 650 mg Tablet Extended Release 1,300 mg PO Q12H PRN (Reason: Pain) RF: 0 multivitamin Tablet 1 tab PO QDL RF: 0 ferrous sulfate 325 mg (65 mg iron) Tablet 325 mg PO QAM RF: 0 cholecalciferol (vitamin D3) [Vitamin D3] 2,000 unit Capsule 2,000 unit PO QDL RF: 0 Discharge Orders: Discharge Order (Routine); Ordered 03/13/19 Ordered By: Otoniel Field Admission Data Admit Date/Time: 03/12/19 19:38 Attending Provider: Can Antonio Admit Provider: Rosi Hackett Primary Care Provider: Paula Pro Other Providers: Rosi Hackett Supervising Physician Co-Signing Physician Notes I personally examined the patient and verified all philip points of history and exam, discussed case, and agree with decision making with Dr Field. Feeling better, stools have slowed, eating well, feels up to going home. Discussed the need for follow-up labs. Vitals noted, in general he is awake and alert pleasant no distress. HEENT normocephalic atraumatic mucous membranes are moist. Breathing unlabored no accessory muscle use good effort. Skin shows no rashes no pallor or icterus. Neuro shows no focal deficits. AKIdehydration from gastroenteritis. Improving, not yet back to baseline, but given that his oral intake is good and his diarrhea has slowed to normal bowel movements per him, it is safe to have him go home. Encourage oral intake to at least 60 ounces of fluid on the day, repeat CMP in 3 days. new macrocytosis - B12 OK, recent folate adequate. outpt f/u. Stable for home otherwise as above.
[2019-03-13] MEDS: SODIUM CHLORIDE 0.9% 1000ML 1,000 ML IV SCH (10:33)
[2019-03-13] MEDS ORDERED: SODIUM CHLORIDE 0.9% 1000ML 500 ML IV ONE (10:36)
[2019-03-13] MEDS ORDERED: MULTIVITAMIN TAB PO SCH (11:30)
[2019-03-13] MEDS ORDERED: CHOLECALCIFEROL 1,000 UNITS TAB PO SCH (11:30)
--- NOTE | 2019-03-13 14:53 | Billing Data ---
Date of Service March 13, 2019 Coding Level of Care Code D/C Day Management <30 mins
[2019-03-13 15:31] VITALS: PULSE 71; TEMP 97.7; O2SAT 98
[2019-03-13 15:39] VITALS: BP 108/67
[2019-03-18] MEDS ORDERED: ALENDRONATE SODIUM 70 MG TAB PO SCH (21:00)
== END 2019-03-13 16:19 | disposition home or self-care (01) | DRG 392 ==
LOC: ED 15:59 → 2S 19:38 → SUATTDRO 19:38 → 2S 20:06